=== PATIENT | female | born 1940 | race Caucasian/White ===

== ENCOUNTER 2018-05-08 17:22 | Inpatient (IN) | payer MEDICARE ==
[~2018-05-08] VITALS: Ht 162.6 cm; Wt 110.6 kg
[~2018-05-08 17:22] MED LIST: FURO-149 PO; LEVO100T9 PO; PARO10TA23 PO; POTA10TA19 PO; PRAM0.5T12 PO
[2018-05-08 18:10] LABS: BASOPHILS # (AUTO) 0.1 X10'3 (0-0.2); BASOPHILS % (AUTO) 1.1 % (0-1); EOSINOPHILS # (AUTO) 0.4 X10'3 (0-0.9); EOSINOPHILS % (AUTO) 3.5 % (0-6); HEMATOCRIT 34.1 % (35.0-45.0); HEMOGLOBIN 11.5 g/dl (12.0-16.0); LYMPHOCYTES % (AUTO) 17.9 % (21-51); MEAN CORPUSCULAR HEMOGLOBIN 29.8 PG (27.0-31.0); MEAN CORPUSCULAR HGB CONC 33.6 % (33.0-36.5); MEAN CORPUSCULAR VOLUME 88.5 FL (78-98); MEAN PLATELET VOLUME 7.1 FL (7.4-10.4); MONOCYTES # (AUTO) 0.7 X10'3 (0-0.9); MONOCYTES % (AUTO) 6.1 % (2-12); NEUTROPHILS # (AUTO) 7.8 X10'3 (1.8-7.7); NEUTROPHILS % (AUTO) 71.4 % (42-75); PLATELET COUNT 302 X10'3 (140-440); RED BLOOD COUNT 3.86 X10'6 (4.20-5.60); RED CELL DISTRIBUTION WIDTH 15.1 % (11.5-14.5); WHITE BLOOD COUNT 10.9 X10'3 (4.5-11.0)
[2018-05-08 18:24] LABS: ALBUMIN 2.9 G/DL (3.4-5.0); ALBUMIN/GLOBULIN RATIO 0.5 (1.1-1.5); ALKALINE PHOSPHATASE 91 IU/L (46-116); ANION GAP 9 (8-16); ASPARTATE AMINO TRANSFERASE 12 U/L (10-37); BILIRUBIN,TOTAL 0.7 MG/DL (0.1-1.0); BLOOD UREA NITROGEN 30 MG/DL (7-18); CALCIUM 9.4 MG/DL (8.5-10.1); CHLORIDE 100 MMOL/L (99-107); CREATININE 1.11 MG/DL (0.40-0.90); D-DIMER 2.07 MG/L FEU (0-0.50); GLUCOSE 97 MG/DL (70-104); PARTIAL THROMBOPLASTIN TIME 28 SECONDS (22-32); POTASSIUM 3.5 MMOL/L (3.5-5.1); PROTHROMBIN TIME 10.4 SECONDS (9.0-12.0); SODIUM 139 MMOL/L (135-145); TOTAL CARBON DIOXIDE 29.8 MMOL/L (24-32); TOTAL PROTEIN 8.3 G/DL (6.4-8.2); eGFR 48 ML/MIN
[2018-05-08 18:44] LABS: ALANINE AMINOTRANSFERASE < 6 U/L (12-78)
[2018-05-08] MEDS ORDERED: iohexol 350MG/ML 100ml bottle IV ONE (19:43)
[2018-05-08] MEDS ORDERED: piperacillin/tazo 3.375gm/50ml 50 ML IV ONE (21:30)
[2018-05-08] MEDS ORDERED: ZAR2.5T PO (23:47)
[2018-05-08] MEDS ORDERED: FLUO20CA39 PO (23:47)
[2018-05-09] MEDS ORDERED: normal saline 1000ml 1,000 ML IV ONE (00:05)
[2018-05-09] MEDS ORDERED: magnesium hydroxide 30ml (MOM) UD suspension PO PRN (00:05)
[2018-05-09] MEDS ORDERED: acetaminophen 325mg tablet PO PRN (00:05)
[2018-05-09] MEDS ORDERED: mag hydrox/Alum hydrox/simeth 30ml oral suspension PO PRN (00:05)
[2018-05-09] MEDS ORDERED: ondansetron/PF 4mg/2ml inj IV PRN (00:05)
[2018-05-09] MEDS ORDERED: vancomycin/NS 1 GM ADD-VANTAGE 250 ML X 1 DOSE IV ONE (00:15)
[2018-05-09 01:10] VITALS: BP 126/62
[2018-05-09 08:00] VITALS: BP 109/62
[2018-05-09] MEDS: levoTHYROXINE 125mcg tablet PO SCH (08:19)
[2018-05-09] MEDS: FLUoxetine 20mg capsule PO SCH (08:19)
[2018-05-09] MEDS: pramipexole 0.25mg tablet PO PRN ×2 (08:19→17:09)
[2018-05-09] MEDS: enoxaparin 40mg/0.4ml syringe SUBCUT SCH (08:20)
[2018-05-09 09:48] LABS: BASOPHILS % (AUTO) 0.5 % (0-1); EOSINOPHILS # (AUTO) 0.4 X10'3 (0-0.9); EOSINOPHILS % (AUTO) 4.4 % (0-6); HEMATOCRIT 32.5 % (35.0-45.0); LYMPHOCYTES # (AUTO) 1.4 X10'3 (1.1-4.8); LYMPHOCYTES % (AUTO) 15.1 % (21-51); MEAN CORPUSCULAR HEMOGLOBIN 30.1 PG (27.0-31.0); MEAN CORPUSCULAR HGB CONC 33.9 % (33.0-36.5); MEAN CORPUSCULAR VOLUME 88.8 FL (78-98); MEAN PLATELET VOLUME 6.8 FL (7.4-10.4); MONOCYTES # (AUTO) 0.7 X10'3 (0-0.9); MONOCYTES % (AUTO) 7.6 % (2-12); NEUTROPHILS # (AUTO) 6.5 X10'3 (1.8-7.7); NEUTROPHILS % (AUTO) 72.4 % (42-75); PLATELET COUNT 300 X10'3 (140-440); RED BLOOD COUNT 3.66 X10'6 (4.20-5.60); RED CELL DISTRIBUTION WIDTH 15.4 % (11.5-14.5)
[2018-05-09 09:53] LABS: ALBUMIN 2.6 G/DL (3.4-5.0); ANION GAP 7 (8-16); BLOOD UREA NITROGEN 27 MG/DL (7-18); BUN/CREATININE RATIO 25.5 (6.6-38.0); CALCIUM 9.2 MG/DL (8.5-10.1); CHLORIDE 100 MMOL/L (99-107); CREATININE 1.06 MG/DL (0.40-0.90); GLUCOSE 125 MG/DL (70-104); POTASSIUM 3.4 MMOL/L (3.5-5.1); SODIUM 140 MMOL/L (135-145); TOTAL CARBON DIOXIDE 32.6 MMOL/L (24-32); eGFR 50 ML/MIN
[2018-05-09 11:58] VITALS: BP 125/69
[2018-05-09] MEDS ORDERED: magnesium Cl slow-release 64mg tablet PO PRN (16:10)
[2018-05-09] MEDS ORDERED: potassium Cl 40MEQ/NS 500ml 500 ML IV PRN ×2 (16:10)
[2018-05-09] MEDS ORDERED: magnesium 4gm in 100ml NS 100 ML IV PRN (16:10)
[2018-05-09] MEDS ORDERED: potassium Cl 20 mEq SR tablet PO PRN (16:10)
[2018-05-09] MEDS: CefTRIAXone/D5W-Rocephin 1gm 50 ML IV SCH (16:54)
[2018-05-09] MEDS: potassium Cl 20 mEq SR tablet PO PRN ×2 (17:01→21:16)
[2018-05-09 19:00] VITALS: BP 108/84
[2018-05-09] MEDS: lactobacillus rhamnosus 10,000 MMU CELLS/CAPSULE PO SCH (19:43)
[2018-05-09] MEDS: acetaminophen 325mg tablet PO PRN (19:45)
[2018-05-09] MEDS: pramipexole 0.25mg tablet PO SCH (23:36)
[2018-05-10] VITALS (7 sets, daily range): BP systolic 99–133; BP diastolic 51–66
[2018-05-10] MEDS: acetaminophen 325mg tablet PO PRN ×2 (05:16→16:41)
[2018-05-10 05:38] LABS: BASOPHILS # (AUTO) 0.1 X10'3 (0-0.2); BASOPHILS % (AUTO) 0.9 % (0-1); EOSINOPHILS # (AUTO) 0.4 X10'3 (0-0.9); EOSINOPHILS % (AUTO) 5.5 % (0-6); HEMATOCRIT 34.6 % (35.0-45.0); HEMOGLOBIN 11.6 g/dl (12.0-16.0); LYMPHOCYTES # (AUTO) 2.1 X10'3 (1.1-4.8); LYMPHOCYTES % (AUTO) 28.7 % (21-51); MEAN CORPUSCULAR HEMOGLOBIN 29.5 PG (27.0-31.0); MEAN CORPUSCULAR HGB CONC 33.6 % (33.0-36.5); MEAN CORPUSCULAR VOLUME 87.8 FL (78-98); MONOCYTES # (AUTO) 0.5 X10'3 (0-0.9); MONOCYTES % (AUTO) 6.3 % (2-12); NEUTROPHILS # (AUTO) 4.3 X10'3 (1.8-7.7); NEUTROPHILS % (AUTO) 58.6 % (42-75); PLATELET COUNT 314 X10'3 (140-440); RED BLOOD COUNT 3.95 X10'6 (4.20-5.60); RED CELL DISTRIBUTION WIDTH 15.4 % (11.5-14.5); WHITE BLOOD COUNT 7.3 X10'3 (4.5-11.0)
[2018-05-10 05:50] LABS: ALBUMIN 2.7 G/DL (3.4-5.0); ANION GAP 11 (8-16); BLOOD UREA NITROGEN 18 MG/DL (7-18); BUN/CREATININE RATIO 19.1 (6.6-38.0); CALCIUM 9.9 MG/DL (8.5-10.1); CHLORIDE 100 MMOL/L (99-107); CREATININE 0.94 MG/DL (0.40-0.90); GLUCOSE 110 MG/DL (70-104); POTASSIUM 3.8 MMOL/L (3.5-5.1); SODIUM 138 MMOL/L (135-145); TOTAL CARBON DIOXIDE 27.3 MMOL/L (24-32); eGFR 58 ML/MIN
[2018-05-10] MEDS: lactobacillus rhamnosus 10,000 MMU CELLS/CAPSULE PO SCH ×2 (07:26→20:12)
[2018-05-10] MEDS: pramipexole 0.25mg tablet PO SCH ×2 (07:26→20:12)
[2018-05-10] MEDS: FLUoxetine 20mg capsule PO SCH (07:27)
[2018-05-10] MEDS: levoTHYROXINE 125mcg tablet PO SCH (07:27)
[2018-05-10] MEDS: CefTRIAXone/D5W-Rocephin 1gm 50 ML IV SCH (07:28)
[2018-05-10] MEDS: enoxaparin 40mg/0.4ml syringe SUBCUT SCH (07:28)
[2018-05-10] MEDS ORDERED: VANCOMYCIN LEVEL IV ONE (23:30)
[2018-05-11] VITALS: BP 127/68
[2018-05-11 06:48] LABS: ALBUMIN 2.5 G/DL (3.4-5.0); ANION GAP 10 (8-16); BLOOD UREA NITROGEN 20 MG/DL (7-18); BUN/CREATININE RATIO 23.5 (6.6-38.0); CALCIUM 9.6 MG/DL (8.5-10.1); CHLORIDE 101 MMOL/L (99-107); CREATININE 0.85 MG/DL (0.40-0.90); GLUCOSE 100 MG/DL (70-104); SODIUM 138 MMOL/L (135-145); TOTAL CARBON DIOXIDE 26.7 MMOL/L (24-32); eGFR 65 ML/MIN
[2018-05-11 07:00] VITALS: BP 114/65
[2018-05-11 07:58] LABS: BASOPHILS # (AUTO) 0.1 X10'3 (0-0.2); BASOPHILS % (AUTO) 0.9 % (0-1); EOSINOPHILS # (AUTO) 0.4 X10'3 (0-0.9); HEMOGLOBIN 11.7 g/dl (12.0-16.0); LYMPHOCYTES % (AUTO) 26.1 % (21-51); MEAN CORPUSCULAR HEMOGLOBIN 29.8 PG (27.0-31.0); MEAN CORPUSCULAR HGB CONC 33.5 % (33.0-36.5); MEAN CORPUSCULAR VOLUME 88.9 FL (78-98); MONOCYTES # (AUTO) 0.6 X10'3 (0-0.9); MONOCYTES % (AUTO) 8.3 % (2-12); NEUTROPHILS # (AUTO) 4.4 X10'3 (1.8-7.7); NEUTROPHILS % (AUTO) 58.7 % (42-75); PLATELET COUNT 316 X10'3 (140-440); RED BLOOD COUNT 3.94 X10'6 (4.20-5.60); RED CELL DISTRIBUTION WIDTH 15.5 % (11.5-14.5); WHITE BLOOD COUNT 7.5 X10'3 (4.5-11.0)
[2018-05-11] MEDS: CefTRIAXone/D5W-Rocephin 1gm 50 ML IV SCH (08:48)
[2018-05-11] MEDS: levoTHYROXINE 100mcg tablet PO SCH (08:59)
[2018-05-11] MEDS: lactobacillus rhamnosus 10,000 MMU CELLS/CAPSULE PO SCH ×2 (09:00→19:19)
[2018-05-11] MEDS: pramipexole 0.25mg tablet PO SCH ×2 (09:01→19:19)
[2018-05-11] MEDS: FLUoxetine 20mg capsule PO SCH (09:01)
[2018-05-11] MEDS: enoxaparin 40mg/0.4ml syringe SUBCUT SCH (09:02)
[2018-05-11 10:50] VITALS: BP 126/75
[2018-05-11 11:00] VITALS: BP 126/75
[2018-05-11] MEDS ORDERED: vancomycin inj 1,250 MG in normal saline 250ml IV soln 250 ML IV SCH (12:00)
[2018-05-11] MEDS: clindamycin 600mg/D5W 50ml 50 ML IV SCH ×2 (15:41→19:19)
[2018-05-11] MEDS: levoFLOXACIN-Levaquin 500mg/D5 100 ML IV SCH (16:44)
[2018-05-11 18:00] VITALS: BP 114/63
[2018-05-12] VITALS: BP 106/55
[2018-05-12] MEDS: clindamycin 600mg/D5W 50ml 50 ML IV SCH ×3 (01:58→14:09)
[2018-05-12 06:44] LABS: BASOPHILS # (AUTO) 0.1 X10'3 (0-0.2); BASOPHILS % (AUTO) 0.7 % (0-1); EOSINOPHILS # (AUTO) 0.5 X10'3 (0-0.9); EOSINOPHILS % (AUTO) 5.6 % (0-6); HEMATOCRIT 34.8 % (35.0-45.0); HEMOGLOBIN 11.6 g/dl (12.0-16.0); LYMPHOCYTES # (AUTO) 1.9 X10'3 (1.1-4.8); LYMPHOCYTES % (AUTO) 22.8 % (21-51); MEAN CORPUSCULAR HEMOGLOBIN 29.6 PG (27.0-31.0); MEAN CORPUSCULAR HGB CONC 33.3 % (33.0-36.5); MEAN CORPUSCULAR VOLUME 88.8 FL (78-98); MEAN PLATELET VOLUME 7.1 FL (7.4-10.4); MONOCYTES # (AUTO) 0.6 X10'3 (0-0.9); MONOCYTES % (AUTO) 7.5 % (2-12); NEUTROPHILS # (AUTO) 5.2 X10'3 (1.8-7.7); NEUTROPHILS % (AUTO) 63.4 % (42-75); PLATELET COUNT 309 X10'3 (140-440); RED BLOOD COUNT 3.92 X10'6 (4.20-5.60); RED CELL DISTRIBUTION WIDTH 15.8 % (11.5-14.5); WHITE BLOOD COUNT 8.2 X10'3 (4.5-11.0)
[2018-05-12 06:52] LABS: ALBUMIN 2.7 G/DL (3.4-5.0); ANION GAP 12 (8-16); BLOOD UREA NITROGEN 19 MG/DL (7-18); BUN/CREATININE RATIO 20.4 (6.6-38.0); CALCIUM 9.9 MG/DL (8.5-10.1); CHLORIDE 99 MMOL/L (99-107); CREATININE 0.93 MG/DL (0.40-0.90); GLUCOSE 105 MG/DL (70-104); POTASSIUM 4.1 MMOL/L (3.5-5.1); SODIUM 139 MMOL/L (135-145); TOTAL CARBON DIOXIDE 28.4 MMOL/L (24-32); eGFR 59 ML/MIN
[2018-05-12 07:00] VITALS: BP 129/60
[2018-05-12] MEDS: levoTHYROXINE 100mcg tablet PO SCH (07:27)
[2018-05-12] MEDS: lactobacillus rhamnosus 10,000 MMU CELLS/CAPSULE PO SCH (07:27)
[2018-05-12] MEDS: pramipexole 0.25mg tablet PO SCH ×2 (07:27→18:52)
[2018-05-12] MEDS: FLUoxetine 20mg capsule PO SCH (07:27)
[2018-05-12] MEDS: enoxaparin 40mg/0.4ml syringe SUBCUT SCH (07:28)
[2018-05-12] MEDS: levoFLOXACIN-Levaquin 500mg/D5 100 ML IV SCH (09:11)
[2018-05-12] MEDS ORDERED: CLIN-5 PO (11:15)
[2018-05-12] MEDS ORDERED: LEVO100T9 PO (11:15)
[2018-05-12] MEDS ORDERED: LEVO500T2 PO (11:15)
[2018-05-12 11:57] VITALS: BP 115/58
[2018-05-12] MEDS ORDERED: VANCOMYCIN LEVEL IV NR (23:30)
[2018-05-13] MEDS ORDERED: levoFLOXACIN 500mg tablet PO SCH (11:00)
== END 2018-05-12 19:21 | disposition home or self-care (01) | DRG 683 ==
LOC: ER 17:23 → ED HOLD 05-09 00:01 → EDBEDREQ 05-09 00:17 → SUR 3N 05-09 00:50
PROVIDERS: ADMIT Internal Medicine; ATTEND Internal Medicine
PROC: B32T1ZZ Computerized Tomography (CT Scan) of Left Pulmonary Artery using Low Osmolar Contrast (ICD-10-PCS; principal; 2018-05-08)
PROC: B3201ZZ Computerized Tomography (CT Scan) of Thoracic Aorta using Low Osmolar Contrast (ICD-10-PCS; 2018-05-08)
PROC: B32S1ZZ Computerized Tomography (CT Scan) of Right Pulmonary Artery using Low Osmolar Contrast (ICD-10-PCS; 2018-05-08)
DX: N17.9 Acute kidney failure, unspecified (principal); L03.116 Cellulitis of left lower limb; Z68.41 Body mass index [BMI] 40.0-44.9, adult; L97.129 Non-pressure chronic ulcer of left thigh with unspecified severity; E86.0 Dehydration; E03.9 Hypothyroidism, unspecified; E87.6 Hypokalemia; I27.20 Pulmonary hypertension, unspecified; I11.0 Hypertensive heart disease with heart failure; I95.9 Hypotension, unspecified; D64.9 Anemia, unspecified; I50.9 Heart failure, unspecified; E66.01 Morbid (severe) obesity due to excess calories; K21.9 Gastro-esophageal reflux disease without esophagitis; F32.9 Major depressive disorder, single episode, unspecified; G89.29 Other chronic pain; R09.02 Hypoxemia; R59.0 Localized enlarged lymph nodes; Z90.49 Acquired absence of other specified parts of digestive tract; Z87.440 Personal history of urinary (tract) infections; Z82.49 Family history of ischemic heart disease and other diseases of the circulatory system
CPT/HCPCS: 36415; 71045; 71275; 73552; 76881; 80048; 80053; 80202; 83880; 84443; 84484; 85025; 85379; 85610; 85730; 87040; 87070; 93005; 93306; 97116; 97161; 97530; 99285; A4649; A6196; A6212; A6213; A6449; J0696; J1650; J1956; J2543; J3370; J3490; J7030; Q9967

== ENCOUNTER 2018-05-30 07:46 | Day surgery (SDC) | payer MEDICARE ==
[2018-05-30] VITALS (11 sets, daily range): BP systolic 111–165; BP diastolic 52–89
[~2018-05-30] VITALS: Ht 162.6 cm; Wt 113.0 kg
[~2018-05-30 07:46] MED LIST changes: +CLIN-5 PO; +FLUO20CA39 PO; -FURO-149 PO; -PARO10TA23 PO; -POTA10TA19 PO
[2018-05-30] MEDS ORDERED: HYDR-4384 PO (08:37)
[2018-05-30] MEDS ORDERED: LEVO100T PO (08:37)
[2018-05-30] MEDS ORDERED: LACT1CAP65 PO (08:37)
[2018-05-30] MEDS ORDERED: ASPI81TA52 PO (08:37)
[2018-05-30] MEDS ORDERED: LORazepam 1 MG tablet PO STA (08:56)
== END 2018-05-30 12:15 | disposition home or self-care (01) ==
LOC: SSTAY O 07:46
PROVIDERS: ATTEND Radiology Diagnostic Radiology
DX: D48.5 Neoplasm of uncertain behavior of skin (principal); I27.20 Pulmonary hypertension, unspecified; K21.9 Gastro-esophageal reflux disease without esophagitis; M17.0 Bilateral primary osteoarthritis of knee; F32.9 Major depressive disorder, single episode, unspecified; I50.9 Heart failure, unspecified; F41.8 Other specified anxiety disorders; Z90.49 Acquired absence of other specified parts of digestive tract; Z90.89 Acquired absence of other organs; Z79.82 Long term (current) use of aspirin; Z79.891 Long term (current) use of opiate analgesic; Z79.899 Other long term (current) drug therapy; Z98.890 Other specified postprocedural states; Z82.49 Family history of ischemic heart disease and other diseases of the circulatory system
CPT/HCPCS: 36415; 38505; 76942; 88184; 88185; 88305

== ENCOUNTER 2018-06-13 06:41 | Day surgery (SDC) | payer MEDICARE ==
[2018-06-12 12:21] LABS: BASOPHILS % (AUTO) 0.3 % (0-1); EOSINOPHILS # (AUTO) 0.3 X10'3 (0-0.9); EOSINOPHILS % (AUTO) 3.4 % (0-6); LYMPHOCYTES # (AUTO) 1.7 X10'3 (1.1-4.8); LYMPHOCYTES % (AUTO) 21.1 % (21-51); MEAN CORPUSCULAR HEMOGLOBIN 28.5 PG (27.0-31.0); MEAN CORPUSCULAR HGB CONC 32.6 % (33.0-36.5); MEAN CORPUSCULAR VOLUME 87.7 FL (78-98); MEAN PLATELET VOLUME 6.7 FL (7.4-10.4); MONOCYTES # (AUTO) 0.4 X10'3 (0-0.9); MONOCYTES % (AUTO) 5.5 % (2-12); NEUTROPHILS # (AUTO) 5.6 X10'3 (1.8-7.7); NEUTROPHILS % (AUTO) 69.7 % (42-75); PRE OP HEMATOCRIT 32.2 % (35.0-45.0); PRE OP PLATELET COUNT 383 X10'3 (140-440); RED BLOOD COUNT 3.68 X10'6 (4.20-5.60); RED CELL DISTRIBUTION WIDTH 16.5 % (11.5-14.5)
[2018-06-12 12:25] LABS: PRE OP HEMOGLOBIN 10.5 g/dL (12.0-16.0)
[2018-06-12 12:36] LABS: ALBUMIN 2.4 G/DL (3.4-5.0); ALBUMIN/GLOBULIN RATIO 0.4 (1.1-1.5); ALKALINE PHOSPHATASE 76 IU/L (46-116); BLOOD UREA NITROGEN 18 MG/DL (7-18); BUN/CREATININE RATIO 18.9 (6.6-38.0); CALCIUM 9.5 MG/DL (8.5-10.1); CHLORIDE 100 MMOL/L (99-107); CREATININE 0.95 MG/DL (0.40-0.90); PRE OP ALT 13 U/L (30-65); PRE OP ANION GAP 9 (8-16); PRE OP AST 12 U/L (10-37); PRE OP BILIRUB, TOTAL 0.3 MG/DL (0.0-1.0); PRE OP GLUCOSE 160 MG/DL (70-104); PRE OP POTASSIUM 4.1 MMOL/L (3.4-5.1); PRE OP SODIUM 136 MMOL/L (135-145); TOTAL CARBON DIOXIDE 26.9 MMOL/L (24-32); TOTAL PROTEIN 8.7 G/DL (6.4-8.2); eGFR 57 ML/MIN
[2018-06-13] VITALS (20 sets, daily range): BP systolic 108–140; BP diastolic 49–88
[~2018-06-13] VITALS: Ht 162.6 cm; Wt 115.0 kg
[~2018-06-13 06:41] MED LIST changes: +ASPI81TA52 PO; -CLIN-5 PO; +HYDR-4384 PO; +LEVO100T PO; -LEVO100T9 PO; +LORA0.5T PO; +LYR25C PO; +famotidine 20mg tablet PO ONE; +ringers solution, lacted 1,000 ML IV SCH
[2018-06-13] MEDS ORDERED: LIDOcaine 1% (10mg/ml) 2ml vial ONE (07:01)
[2018-06-13] MEDS ORDERED: epiNEPHrine 1 mg/ml inj ONE (08:40)
[2018-06-13] MEDS ORDERED: BUPIVAcaine/PF 2.5mg/ml (0.25%) 10ml vial ONE (08:41)
[2018-06-13] MEDS ORDERED: LIDOcaine 1% 30ml preserv. free vial ONE (09:01)
[2018-06-13] MEDS ORDERED: cefazolin/dext.iso 2gm/100 ML IV ONE (10:51)
[2018-06-13] MEDS ORDERED: sevoflurane 250ml liquid IH ONE (10:52)
[2018-06-13] MEDS ORDERED: fentaNYL/PF 50MCG/1 ML 2ML syringe ONE (10:54)
[2018-06-13] MEDS ORDERED: propofol inj 20 ML IV ONE (11:02)
[2018-06-13] MEDS ORDERED: LIDOcaine 2% (20mg/ml) 5ml vial ONE (11:03)
[2018-06-13] MEDS ORDERED: ceFAZolin 1000mg inj ONE ×2 (11:06)
[2018-06-13] MEDS ORDERED: ondansetron/PF 4mg/2ml inj ONE (11:24)
[2018-06-13] MEDS ORDERED: dexamethasone sod phosphate 4mg/ml inj. ONE (11:24)
[2018-06-13] MEDS ORDERED: morphine 4 MG/ML inj SYRINge ONE (11:49)
[2018-06-13] MEDS ORDERED: ringers solution, lacted 1,000 ML IV SCH (11:50)
[2018-06-13] MEDS ORDERED: ondansetron/PF 4mg/2ml inj IV PRN (11:50)
[2018-06-13] MEDS: morphine 4 MG/ML inj SYRINge IV PRN ×2 (12:00→12:07)
[2018-06-13] MEDS: HYDROmorphone inj. 0.5 MG/0.5 ML DISP.SYRIN IV PRN ×2 (12:09→12:26)
[2018-06-13] MEDS ORDERED: HYDROcodone/acetaminophen 10/325mg tab PO ONE (12:50)
== END 2018-06-13 14:45 | disposition home or self-care (01) ==
LOC: PAS 06:41
PROVIDERS: ATTEND Surgery
DX: C81.04 Nodular lymphocyte predominant Hodgkin lymphoma, lymph nodes of axilla and upper limb (principal); E03.9 Hypothyroidism, unspecified; G47.33 Obstructive sleep apnea (adult) (pediatric); I27.20 Pulmonary hypertension, unspecified; I50.9 Heart failure, unspecified; E66.9 Obesity, unspecified; K21.9 Gastro-esophageal reflux disease without esophagitis; D64.9 Anemia, unspecified; M17.0 Bilateral primary osteoarthritis of knee; G25.81 Restless legs syndrome; F32.9 Major depressive disorder, single episode, unspecified; F41.8 Other specified anxiety disorders; Z79.82 Long term (current) use of aspirin; Z68.41 Body mass index [BMI] 40.0-44.9, adult; Z90.89 Acquired absence of other organs; Z87.01 Personal history of pneumonia (recurrent); Z90.49 Acquired absence of other specified parts of digestive tract; Z79.891 Long term (current) use of opiate analgesic; Z98.890 Other specified postprocedural states; Z79.899 Other long term (current) drug therapy; Z82.49 Family history of ischemic heart disease and other diseases of the circulatory system
CPT/HCPCS: 36415; 38525; 80053; 82948; 85025; 88184; 88185; 88341; 88342; A6449; J0171; J0690; J1100; J1170; J2001; J2270; J2405; J2704; J3010; J3490; 88305; A7000; J7120

== ENCOUNTER 2019-09-18 10:33 | Emergency (ER) | payer MEDICARE ==
[~2019-09-18] VITALS: Ht 165.1 cm; Wt 113.6 kg
[~2019-09-18 10:33] MED LIST changes: -famotidine 20mg tablet PO ONE; -ringers solution, lacted 1,000 ML IV SCH
[2019-09-18 11:25] LABS: BASOPHILS % (AUTO) 1.3 % (0-1); EOSINOPHILS # (AUTO) 0.1 X10'3 (0-0.9); EOSINOPHILS % (AUTO) 4.7 % (0-6); HEMATOCRIT 36.6 % (35.0-45.0); HEMOGLOBIN 12.2 g/dl (12.0-16.0); LYMPHOCYTES # (AUTO) 1.2 X10'3 (1.1-4.8); LYMPHOCYTES % (AUTO) 39.8 % (21-51); MEAN CORPUSCULAR HEMOGLOBIN 30.4 PG (27.0-31.0); MEAN CORPUSCULAR HGB CONC 33.5 g/dL (33.0-36.5); MEAN PLATELET VOLUME 6.7 FL (7.4-10.4); MONOCYTES # (AUTO) 0.5 X10'3 (0-0.9); MONOCYTES % (AUTO) 17.7 % (2-12); NEUTROPHILS # (AUTO) 1.1 X10'3 (1.8-7.7); NEUTROPHILS % (AUTO) 36.5 % (42-75); PLATELET COUNT 214 X10'3 (140-440); RED BLOOD COUNT 4.02 X10'6 (4.20-5.60); RED CELL DISTRIBUTION WIDTH 15.1 % (11.5-14.5); WHITE BLOOD COUNT 2.9 X10'3 (4.5-11.0)
[2019-09-18 11:49] LABS: PLATELET ESTIMATE NORMAL; TOTAL CELLS COUNTED 100
[2019-09-18 11:56] LABS: ALANINE AMINOTRANSFERASE 27 U/L (12-78); ALBUMIN 3.1 G/DL (3.4-5.0); ALBUMIN/GLOBULIN RATIO 0.6 (1.1-1.5); ALKALINE PHOSPHATASE 82 IU/L (46-116); ANION GAP 5 (8-16); ASPARTATE AMINO TRANSFERASE 22 U/L (10-37); BILIRUBIN,TOTAL 0.5 MG/DL (0.1-1.0); BLOOD UREA NITROGEN 18 MG/DL (7-18); BUN/CREATININE RATIO 21.4 (6.6-38.0); CHLORIDE 104 MMOL/L (99-107); CREATININE 0.84 MG/DL (0.40-0.90); GLUCOSE 100 MG/DL (70-104); POTASSIUM 3.8 MMOL/L (3.5-5.1); SODIUM 139 MMOL/L (135-145); TOTAL CARBON DIOXIDE 30.1 MMOL/L (24-32); TOTAL PROTEIN 7.9 G/DL (6.4-8.2); eGFR 66 ML/MIN
[2019-09-18 12:00] LABS: LIPASE < 50 U/L (73-393); TROPONIN I < 0.04 NG/ML (0.0-0.05)
[2019-09-18] MEDS ORDERED: normal saline 1000ML IV soln IVB ONE ×2 (12:10)
[2019-09-18] MEDS ORDERED: ondansetron/PF 4mg/2ml inj IV ONE (12:10)
[2019-09-18] MEDS ORDERED: pantoprazole 40 MG vial IV ONE (12:15)
[2019-09-18] MEDS ORDERED: famotidine/PF 10 mg/ml inj IV ONE (12:15)
--- NOTE | 2019-09-18 12:40 | NUR ---
PT HAD LYMPHOMA 08/23 SHE WENT THROUGH RADIATION AND IT IS REPORTED THAT SHE IS IN REMISION. PT DR IS DR SMALLWOOD.
--- NOTE | 2019-09-18 12:55 | NUR ---
VASCULAT AT BEDSIDE
[2019-09-18 14:54] LABS: CLARITY,URINE SLIGHTLY CLOUDY (Clear); COLOR,URINE YELLOW (Yellow); GLUCOSE, URINE NEGATIVE (Neg); KETONES,URINE NEGATIVE (Neg); LEUKOCYTE ESTERASE ,URINE NEGATIVE (Neg); NITRITES, URINE NEGATIVE (Neg); OCCULT BLOOD,URINE TRACE-INTACT (Neg); PROTEIN,URINE NEGATIVE (Neg)
[2019-09-18 14:55] LABS: UA COLLECTION TYPE CLN CATCH MIDSTREAM
[2019-09-18] MEDS ORDERED: ONDA8TAB6 PO (14:59)
[2019-09-18] MEDS ORDERED: PANT-47 PO (14:59)
[2019-09-18 15:02] LABS: SQUAMOUS EPITHELIAL CELL,UR MANY /LPF (FEW)
[2019-09-18 15:03] LABS: BACTERIA,URINE 1+ /HPF (Neg); HYALINE CASTS 0-3 /LPF (NEGATIVE); MUCUS STRANDS FEW /LPF (Neg); WBC,URINE 0-4 /HPF (0-4)
[2019-09-18 15:50] VITALS: BP 102/56
[2019-09-20] MEDS ORDERED: ONDA8TAB65 PO (11:40)
[2019-09-20] MEDS ORDERED: PANT40TA4 PO (11:40)
== END 2019-09-18 15:52 | disposition home or self-care (01) ==
LOC: ER 10:34
DX: K29.00 Acute gastritis without bleeding (principal); E86.0 Dehydration; I11.0 Hypertensive heart disease with heart failure; I50.9 Heart failure, unspecified; K21.9 Gastro-esophageal reflux disease without esophagitis; G89.29 Other chronic pain; F32.9 Major depressive disorder, single episode, unspecified; Z90.49 Acquired absence of other specified parts of digestive tract; Z98.890 Other specified postprocedural states; Z79.899 Other long term (current) drug therapy
CPT/HCPCS: 36415; 80053; 81001; 83690; 83880; 84484; 85025; 93005; 93971; 96374; 96375; 99284; C9113; J2405; J3490; J7030

== ENCOUNTER 2022-11-28 15:41 | Emergency (ER) | payer MEDICARE ==
[~2022-11-28] VITALS: Ht 165.1 cm; Wt 127.3 kg
[~2022-11-28 15:41] MED LIST changes: -ASPI81TA52 PO; -HYDR-4384 PO; +LACT10SO78 PO; -LORA0.5T PO; -LYR25C PO; +ONDA-104 PO; +PANT40TA54 PO
[2022-11-28 15:51] VITALS: BP 111/63
[2022-11-28 16:04] LABS: BASOPHILS % (AUTO) 0.2 % (0-1); EOSINOPHILS # (AUTO) 0.1 X10'3 (0-0.9); EOSINOPHILS % (AUTO) 0.8 % (0-6); HEMATOCRIT 34.3 % (35.0-45.0); HEMOGLOBIN 11.5 g/dl (12.0-16.0); LYMPHOCYTES # (AUTO) 1.3 X10'3 (1.1-4.8); LYMPHOCYTES % (AUTO) 11.5 % (21-51); MEAN CORPUSCULAR HEMOGLOBIN 31.1 PG (27.0-31.0); MEAN CORPUSCULAR HGB CONC 33.6 g/dL (33.0-36.5); MEAN CORPUSCULAR VOLUME 92.6 FL (78-98); MEAN PLATELET VOLUME 6.9 FL (7.4-10.4); MONOCYTES # (AUTO) 1.1 X10'3 (0-0.9); MONOCYTES % (AUTO) 10.3 % (2-12); NEUTROPHILS # (AUTO) 8.4 X10'3 (1.8-7.7); NEUTROPHILS % (AUTO) 77.2 % (42-75); PLATELET COUNT 195 X10'3 (140-440); RED BLOOD COUNT 3.71 X10'6 (4.20-5.60); WHITE BLOOD COUNT 10.9 X10'3 (4.5-11.0)
[2022-11-28 16:20] LABS: ALANINE AMINOTRANSFERASE 12 U/L (12-78); ALBUMIN 2.8 G/DL (3.4-5.0); ALBUMIN/GLOBULIN RATIO 0.5 (1.1-1.5); ALKALINE PHOSPHATASE 72 IU/L (46-116); ANION GAP 7 (8-16); ASPARTATE AMINO TRANSFERASE 14 U/L (10-37); BILIRUBIN,TOTAL 0.4 MG/DL (0.1-1.0); BLOOD UREA NITROGEN 12 MG/DL (7-18); BUN/CREATININE RATIO 12.8 (10.0-20.0); CALCIUM 9.6 MG/DL (8.5-10.1); CHLORIDE 97 MMOL/L (99-107); CREATININE 0.94 MG/DL (0.40-0.90); GLUCOSE 128 MG/DL (70-104); POTASSIUM 4.1 MMOL/L (3.5-5.1); SODIUM 134 MMOL/L (135-145); TOTAL CARBON DIOXIDE 30.3 MMOL/L (24-32); eGFR 57 ML/MIN
[2022-11-28 16:21] LABS: MAGNESIUM 1.5 MG/DL (1.5-2.4)
== END 2022-11-28 17:36 | disposition left against medical advice (07) ==
LOC: ER 15:42
DX: R06.02 Shortness of breath (principal); Z53.21 Procedure and treatment not carried out due to patient leaving prior to being seen by health care provider; Z79.899 Other long term (current) drug therapy
CPT/HCPCS: 36415; 71046; 80053; 83735; 83880; 84484; 85025; 93005; 99281

== ENCOUNTER 2024-01-20 23:02 | Inpatient (IN) | payer MEDICARE ==
[~2024-01-20] VITALS: Ht 162.6 cm; Wt 104.1 kg
[~2024-01-20 23:02] MED LIST changes: +ALBU8HFA PO; +BUDE10.2 INH; +CHOL100025 PO; +DONE-46 PO; -FLUO20CA39 PO; -LACT10SO78 PO; +LACT1CAP74 PO; -ONDA-104 PO; -PANT40TA54 PO; +PRAM0.253 PO; -PRAM0.5T12 PO; +PROZ10C PO
[2024-01-21] VITALS (20 sets, daily range): BP systolic 106–160; BP diastolic 54–85; PULSE 56–106; RESP 12–36; O2SAT 93–98
[2024-01-21 00:03] LABS: BASOPHILS # (AUTO) 0.1 X10'3 (0-0.2); BASOPHILS % (AUTO) 0.5 % (0-1); EOSINOPHILS % (AUTO) 0 % (0-6); HEMATOCRIT 41.2 % (35.0-45.0); HEMOGLOBIN 13.9 g/dl (12.0-16.0); LYMPHOCYTES # (AUTO) 1.2 X10'3 (1.1-4.8); LYMPHOCYTES % (AUTO) 12.2 % (21-51); MEAN CORPUSCULAR HEMOGLOBIN 30.7 PG (27.0-31.0); MEAN CORPUSCULAR HGB CONC 33.6 g/dL (33.0-36.5); MEAN CORPUSCULAR VOLUME 91.2 FL (78-98); MEAN PLATELET VOLUME 6.9 FL (7.4-10.4); MONOCYTES # (AUTO) 0.3 X10'3 (0-0.9); MONOCYTES % (AUTO) 2.7 % (2-12); NEUTROPHILS # (AUTO) 8.5 X10'3 (1.8-7.7); NEUTROPHILS % (AUTO) 84.6 % (42-75); PLATELET COUNT 262 X10'3 (140-440); RED BLOOD COUNT 4.52 X10'6 (4.20-5.60); RED CELL DISTRIBUTION WIDTH 15.5 % (11.5-14.5); WHITE BLOOD COUNT 10.1 X10'3 (4.5-11.0)
[2024-01-21 00:11] LABS: ALANINE AMINOTRANSFERASE 22 U/L (12-78); ALBUMIN 3.8 G/DL (3.4-5.0); ALBUMIN/GLOBULIN RATIO 0.6 (1.1-1.5); ALKALINE PHOSPHATASE 100 IU/L (46-116); ANION GAP 10 (8-16); ASPARTATE AMINO TRANSFERASE 19 U/L (10-37); BILIRUBIN,TOTAL 0.8 MG/DL (0.1-1.0); BLOOD UREA NITROGEN 14 MG/DL (7-18); CALCIUM 10.9 MG/DL (8.5-10.1); CHLORIDE 98 MMOL/L (99-107); CREATININE 1.08 MG/DL (0.40-0.90); GLUCOSE 163 MG/DL (70-104); LIPASE 24 U/L (16-77); POTASSIUM 3.8 MMOL/L (3.5-5.1); SODIUM 138 MMOL/L (135-145); TOTAL CARBON DIOXIDE 29.6 MMOL/L (24-32); TOTAL PROTEIN 10.4 G/DL (6.4-8.2); eCRCL 35 ML/MIN; eGFR 49 ML/MIN
[2024-01-21] MEDS: morphine 4 MG/ML inj SYRINge IM ONE (01:09)
[2024-01-21] MEDS: normal saline 1000ML IV soln IVB ONE (01:10)
[2024-01-21] MEDS ORDERED: magnesium 4gm in 100ml NS 100 ML IV PRN (03:10)
[2024-01-21] MEDS ORDERED: ondansetron/PF 4mg/2ml inj IV PRN (03:10)
[2024-01-21] MEDS ORDERED: magnesium 2GM in 50ml NS 50 ML IV PRN (03:10)
[2024-01-21] MEDS ORDERED: potassium Cl 40MEQ/1/2NS 520ml 520 ML IV PRN (03:10)
[2024-01-21] MEDS ORDERED: morphine 2 MG/ML inj. syringe IV PRN ×2 (03:10→21:25)
[2024-01-21] MEDS ORDERED: magnesium Cl slow-release 64mg tablet PO PRN (03:10)
[2024-01-21] MEDS ORDERED: potassium Cl 20 mEq SR tablet PO PRN ×2 (03:10)
[2024-01-21] MEDS ORDERED: acetaminophen 325mg tablet PO PRN ×3 (03:10→21:25)
[2024-01-21] MEDS: normal saline 1000ml 1,000 ML IV SCH (04:22)
[2024-01-21] MEDS: K and/or MAG REPLACEMENT MC SCH (08:00)
[2024-01-21 09:25] LABS: POTASSIUM 3.7 MMOL/L (3.5-5.1)
[2024-01-21] MEDS: furosemide 20 MG/2 ML vial IV ONE (12:28)
[2024-01-21] MEDS ORDERED: midazolam 1 mg/ML 2ml injection ONE (14:05)
[2024-01-21] MEDS ORDERED: sevoflurane 250ml liquid IH ONE (14:12)
[2024-01-21] MEDS ORDERED: fentaNYL /PF 50mcg/ml 5ml ampule ONE (14:17)
[2024-01-21] MEDS ORDERED: propofol inj 20 ML IV ONE (15:21)
[2024-01-21] MEDS ORDERED: rocuronium 10mg/ml inj IV ONE (15:21)
[2024-01-21] MEDS ORDERED: LIDOcaine 1% (10mg/ml) 2ml vial ONE (15:21)
[2024-01-21] MEDS ORDERED: LIDOcaine 2% (20mg/ml) 5ml vial ONE (15:21)
[2024-01-21] MEDS ORDERED: ceFOXitin 1000 MG inj ONE ×2 (15:21)
[2024-01-21] MEDS ORDERED: dexamethasone sod phosphate 4mg/ml inj. ONE (15:33)
[2024-01-21] MEDS ORDERED: fentaNYL/PF 50MCG/1 ML 2ML syringe IV PRN (15:35)
[2024-01-21] MEDS ORDERED: midazolam 100mg in NS 100ml 100 ML IV SCH (15:35)
[2024-01-21] MEDS ORDERED: FENTANYL-0.9 % NACL/PF 100 ML IV SCH (15:35)
[2024-01-21] MEDS ORDERED: MIDAZOLAM IN NACL,ISO-OSMOT/PF 100 ML IV SCH ×2 (16:02→16:35)
[2024-01-21 16:46] LABS: ABG BASE EXCESS 1.4 mmol/L (-2.0-2.0); ABG HCO3 24.4 mmol/L (22.0-26.0); ABG OXYGEN SATURATION 95.4 % (94-97); ABG PCO2 (T) 33.1 mmHg (32.0-45.0); ABG PH (T) 7.486 (7.350-7.450); ABG PO2 (T) 76.9 mmHg (75.0-100.0); FCOHb 0.5 % (0.0-3.9); FHHb 4.6 % (0.0-5.0); FO2Hb 94.9 % (94-97); MODE SIMV VC; PATIENT TEMPERATURE 36.9; RESPIRATORY RATE 16 b/min; TIDAL VOLUME 400 mL; TOTAL HEMOGLOBIN 12.5 G/dl (12.0-16.0)
[2024-01-21] MEDS: MIDAZOLAM IN NACL,ISO-OSMOT/PF 100 ML IV SCH (16:48)
[2024-01-21] MEDS: FENTANYL-0.9 % NACL/PF 100 ML IV SCH (16:49)
[2024-01-21] MEDS: midazolam 1 mg/ML 2ml injection IV ONE (17:30)
[2024-01-21] MEDS ORDERED: albuterol 2.5 MG/3 ML nebule NEB PRN (21:25)
[2024-01-21] MEDS ORDERED: morphine 4 MG/ML inj SYRINge IV PRN (21:25)
[2024-01-21] MEDS ORDERED: magnesium hydroxide 30ml (MOM) UD suspension PO PRN (21:25)
[2024-01-21 22:40] LABS: OXYGEN SATURATION (MIXED VEN) 72.5 % (60-80); PO2 MIXED VENOUS (TEMP COR) 36.6 mmHg (35-46)
[2024-01-22] VITALS (32 sets, daily range): BP systolic 81–156; BP diastolic 45–72; PULSE 53–83; RESP 11–24; O2SAT 93–99
[2024-01-22 02:49] LABS: BASOPHILS % (AUTO) 0.1 % (0-1); EOSINOPHILS % (AUTO) 0 % (0-6); HEMATOCRIT 34.2 % (35.0-45.0); HEMOGLOBIN 11.3 g/dl (12.0-16.0); LYMPHOCYTES # (AUTO) 1.2 X10'3 (1.1-4.8); LYMPHOCYTES % (AUTO) 12.2 % (21-51); MEAN CORPUSCULAR HEMOGLOBIN 30.5 PG (27.0-31.0); MEAN CORPUSCULAR HGB CONC 33.1 g/dL (33.0-36.5); MEAN CORPUSCULAR VOLUME 92.2 FL (78-98); MEAN PLATELET VOLUME 7.3 FL (7.4-10.4); MONOCYTES # (AUTO) 0.4 X10'3 (0-0.9); MONOCYTES % (AUTO) 4.4 % (2-12); NEUTROPHILS # (AUTO) 8.4 X10'3 (1.8-7.7); NEUTROPHILS % (AUTO) 83.3 % (42-75); PLATELET COUNT 187 X10'3 (140-440); RED BLOOD COUNT 3.71 X10'6 (4.20-5.60); RED CELL DISTRIBUTION WIDTH 15.9 % (11.5-14.5); WHITE BLOOD COUNT 10.1 X10'3 (4.5-11.0)
[2024-01-22 03:03] LABS: ALBUMIN 2.5 G/DL (3.4-5.0); ANION GAP 6 (8-16); BLOOD UREA NITROGEN 21 MG/DL (7-18); BUN/CREATININE RATIO 20.4 (10.0-20.0); CALCIUM 8.5 MG/DL (8.5-10.1); CHLORIDE 105 MMOL/L (99-107); CREATININE 1.03 MG/DL (0.40-0.90); GLUCOSE 131 MG/DL (70-104); MAGNESIUM 2.1 MG/DL (1.5-2.4); PHOSPHORUS 2.2 MG/DL (2.3-4.5); POTASSIUM 3.6 MMOL/L (3.5-5.1); SODIUM 141 MMOL/L (135-145); TOTAL CARBON DIOXIDE 29.6 MMOL/L (24-32); eCRCL 36 ML/MIN; eGFR 51 ML/MIN
[2024-01-22 04:57] LABS: ABG BASE EXCESS 5.5 mmol/L (-2.0-2.0); ABG OXYGEN SATURATION 97.3 % (94-97); ABG PCO2 (T) 37.8 mmHg (32.0-45.0); ABG PH (T) 7.502 (7.350-7.450); FCOHb 0.2 % (0.0-3.9); FHHb 2.7 % (0.0-5.0); FMetHb 0.3 % (0.0-1.5); FO2Hb 96.8 % (94-97); MODE VENT-SIMV/VC; PATIENT TEMPERATURE 36.8; PEEP 5 cm H2O; RESPIRATORY RATE 16 b/min; TIDAL VOLUME 400 mL; TOTAL HEMOGLOBIN 12.2 G/dl (12.0-16.0)
[2024-01-22] MEDS: famotidine/PF 10 mg/ml inj IV SCH (08:05)
[2024-01-22] MEDS ORDERED: NYST15PO4 TOP (09:48)
[2024-01-22] MEDS ORDERED: PRAM0.5T12 PO (09:48)
[2024-01-22] MEDS ORDERED: ALPR0.255 PO (09:48)
[2024-01-22] MEDS: pramipexole 0.25mg tablet PO ONE (10:58)
[2024-01-22] MEDS ORDERED: HYDROmorphone inj. 0.5 MG/0.5 ML DISP.SYRIN IV PRN (11:35)
[2024-01-22] MEDS ORDERED: HYDROmorphone 1 mg/ml syringe IV PRN ×2 (11:35→11:40)
[2024-01-22] MEDS: pramipexole 0.25mg tablet PO SCH (15:04)
[2024-01-22] MEDS: ALPRAZolam 0.5mg tablet PO PRN (17:51)
[2024-01-22] MEDS: mineral oil/petrolatum ophthal oint EACHEYE SCH (20:00)
[2024-01-23] VITALS (24 sets, daily range): BP systolic 94–130; BP diastolic 46–66; PULSE 61–82; RESP 12–25; TEMP 96.1–99.2; O2SAT 79–98
[2024-01-23 03:10] LABS: BASOPHILS % (AUTO) 0.3 % (0-1); EOSINOPHILS # (AUTO) 0.1 X10'3 (0-0.9); EOSINOPHILS % (AUTO) 0.7 % (0-6); HEMATOCRIT 34.2 % (35.0-45.0); HEMOGLOBIN 11.1 g/dl (12.0-16.0); LYMPHOCYTES # (AUTO) 1.1 X10'3 (1.1-4.8); LYMPHOCYTES % (AUTO) 11.5 % (21-51); MEAN CORPUSCULAR HEMOGLOBIN 30.3 PG (27.0-31.0); MEAN CORPUSCULAR HGB CONC 32.6 g/dL (33.0-36.5); MEAN PLATELET VOLUME 7.7 FL (7.4-10.4); MONOCYTES # (AUTO) 0.4 X10'3 (0-0.9); MONOCYTES % (AUTO) 4.4 % (2-12); NEUTROPHILS % (AUTO) 83.1 % (42-75); PLATELET COUNT 188 X10'3 (140-440); RED BLOOD COUNT 3.67 X10'6 (4.20-5.60); RED CELL DISTRIBUTION WIDTH 16.1 % (11.5-14.5); WHITE BLOOD COUNT 9.6 X10'3 (4.5-11.0)
[2024-01-23 03:23] LABS: ALBUMIN 2.3 G/DL (3.4-5.0); ANION GAP 3 (8-16); BLOOD UREA NITROGEN 23 MG/DL (7-18); BUN/CREATININE RATIO 28.4 (10.0-20.0); CALCIUM 8.8 MG/DL (8.5-10.1); CHLORIDE 108 MMOL/L (99-107); CREATININE 0.81 MG/DL (0.40-0.90); GLUCOSE 109 MG/DL (70-104); MAGNESIUM 2.2 MG/DL (1.5-2.4); SODIUM 143 MMOL/L (135-145); TOTAL CARBON DIOXIDE 32.1 MMOL/L (24-32); eCRCL 46 ML/MIN; eGFR 68 ML/MIN
[2024-01-23 03:26] LABS: PHOSPHORUS 2.2 MG/DL (2.3-4.5); POTASSIUM 4.3 MMOL/L (3.5-5.1)
[2024-01-23] MEDS: famotidine/PF 10 mg/ml inj IV SCH (07:57)
[2024-01-23] MEDS: furosemide 20 MG/2 ML vial IV ONE (12:40)
[2024-01-23 13:05] LABS: FREE T4 (FREE THYROXINE) 1.07 NG/DL (0.73-1.40); THYROID STIMULATING HORMONE 0.34 ulU/ml (0.34-4.50)
[2024-01-23] MEDS ORDERED: ALPRAZolam 0.25mg tablet PO PRN (14:30)
[2024-01-23] MEDS: albuterol 2.5 MG/3 ML nebule NEB SCH (14:58)
[2024-01-23] MEDS: budesonide 0.5mg/2ml UD nebule IH SCH (19:19)
[2024-01-23] MEDS: nystatin 15 GM powder TP SCH (19:48)
[2024-01-23] MEDS ORDERED: non-formulary drug (Budesonide/Formoterol Fumarate (Symbicort 160-4.5 Mcg Inhaler) 2 PUFFS INH SCH (20:00)
[2024-01-23] MEDS: pramipexole 0.25mg tablet PO SCH (20:13)
[2024-01-23] MEDS: enoxaparin 40mg/0.4ml syringe SUBCUT SCH (20:14)
[2024-01-24] VITALS (18 sets, daily range): BP systolic 108–122; BP diastolic 40–52; PULSE 60–97; RESP 14–20; TEMP 97.9–98.7; O2SAT 84–97
[2024-01-24] MEDS: furosemide 20 MG/2 ML vial IV ONE (00:06)
[2024-01-24] MEDS: levoFLOXACIN-Levaquin 500mg/D5 100 ML IV SCH ×2 (00:06→23:50)
[2024-01-24] MEDS: HYDROmorphone inj. 0.5 MG/0.5 ML DISP.SYRIN IV PRN (04:34)
[2024-01-24 06:28] LABS: BASOPHILS % (AUTO) 0.5 % (0-1); EOSINOPHILS # (AUTO) 0.1 X10'3 (0-0.9); EOSINOPHILS % (AUTO) 2.1 % (0-6); HEMATOCRIT 31.1 % (35.0-45.0); HEMOGLOBIN 10.4 g/dl (12.0-16.0); LYMPHOCYTES % (AUTO) 14.9 % (21-51); MEAN CORPUSCULAR HEMOGLOBIN 30.7 PG (27.0-31.0); MEAN CORPUSCULAR HGB CONC 33.4 g/dL (33.0-36.5); MEAN CORPUSCULAR VOLUME 92.1 FL (78-98); MEAN PLATELET VOLUME 7.2 FL (7.4-10.4); MONOCYTES # (AUTO) 0.4 X10'3 (0-0.9); MONOCYTES % (AUTO) 6.5 % (2-12); PLATELET COUNT 173 X10'3 (140-440); RED BLOOD COUNT 3.38 X10'6 (4.20-5.60); WHITE BLOOD COUNT 6.6 X10'3 (4.5-11.0)
[2024-01-24 06:44] LABS: ALBUMIN 2.2 G/DL (3.4-5.0); ANION GAP 8 (8-16); BLOOD UREA NITROGEN 19 MG/DL (7-18); BUN/CREATININE RATIO 20.9 (10.0-20.0); CALCIUM 8.6 MG/DL (8.5-10.1); CHLORIDE 101 MMOL/L (99-107); CREATININE 0.91 MG/DL (0.40-0.90); GLUCOSE 103 MG/DL (70-104); MAGNESIUM 1.7 MG/DL (1.5-2.4); POTASSIUM 3.3 MMOL/L (3.5-5.1); SODIUM 138 MMOL/L (135-145); TOTAL CARBON DIOXIDE 28.8 MMOL/L (24-32); eCRCL 41 ML/MIN; eGFR 59 ML/MIN
[2024-01-24] MEDS ORDERED: magnesium 2GM in 50ml NS 50 ML IV PRN (08:55)
[2024-01-24] MEDS ORDERED: magnesium 4gm in 100ml NS 100 ML IV PRN (08:55)
[2024-01-24] MEDS ORDERED: potassium Cl 20 mEq SR tablet PO PRN (08:55)
[2024-01-24] MEDS ORDERED: potassium Cl 40MEQ/1/2NS 520ml 520 ML IV PRN (08:55)
[2024-01-24] MEDS ORDERED: magnesium Cl slow-release 64mg tablet PO PRN (08:55)
[2024-01-24] MEDS: cholecalciferol (vitamin D3) 1,000 unit (25mcg) tablet PO SCH (08:59)
[2024-01-24] MEDS: FLUoxetine 10mg capsule PO SCH (08:59)
[2024-01-24] MEDS: donepezil 5mg tablet PO SCH (08:59)
[2024-01-24] MEDS: pantoprazole 40 MG vial IV SCH (08:59)
[2024-01-24] MEDS: potassium Cl 20 mEq SR tablet PO PRN (09:17)
[2024-01-24] MEDS: methylPREDNISolone sod succ 125mg/2ml vial IV ONE (23:50)
[2024-01-25] VITALS (18 sets, daily range): BP systolic 118–139; BP diastolic 47–73; PULSE 50–87; RESP 12–20; TEMP 97.5–98.2; O2SAT 90–98
[2024-01-25 05:04] LABS: BASOPHILS % (AUTO) 0.3 % (0-1); EOSINOPHILS % (AUTO) 0.3 % (0-6); HEMOGLOBIN 10.8 g/dl (12.0-16.0); LYMPHOCYTES # (AUTO) 0.4 X10'3 (1.1-4.8); LYMPHOCYTES % (AUTO) 8.1 % (21-51); MEAN CORPUSCULAR HEMOGLOBIN 30.1 PG (27.0-31.0); MEAN CORPUSCULAR HGB CONC 32.6 g/dL (33.0-36.5); MEAN CORPUSCULAR VOLUME 92.3 FL (78-98); MEAN PLATELET VOLUME 7.1 FL (7.4-10.4); MONOCYTES # (AUTO) 0.1 X10'3 (0-0.9); MONOCYTES % (AUTO) 2.5 % (2-12); NEUTROPHILS # (AUTO) 4.9 X10'3 (1.8-7.7); NEUTROPHILS % (AUTO) 88.8 % (42-75); PLATELET COUNT 188 X10'3 (140-440); RED BLOOD COUNT 3.57 X10'6 (4.20-5.60); RED CELL DISTRIBUTION WIDTH 15.6 % (11.5-14.5); WHITE BLOOD COUNT 5.5 X10'3 (4.5-11.0)
[2024-01-25 05:22] LABS: ALBUMIN 2.3 G/DL (3.4-5.0); ANION GAP 7 (8-16); BLOOD UREA NITROGEN 15 MG/DL (7-18); BUN/CREATININE RATIO 19.5 (10.0-20.0); CALCIUM 9.4 MG/DL (8.5-10.1); CHLORIDE 100 MMOL/L (99-107); CREATININE 0.77 MG/DL (0.40-0.90); GLUCOSE 140 MG/DL (70-104); MAGNESIUM 1.9 MG/DL (1.5-2.4); PHOSPHORUS 3.6 MG/DL (2.3-4.5); POTASSIUM 4.7 MMOL/L (3.5-5.1); SODIUM 137 MMOL/L (135-145); TOTAL CARBON DIOXIDE 30.1 MMOL/L (24-32); eCRCL 49 ML/MIN; eGFR 72 ML/MIN
[2024-01-25] MEDS: ondansetron/PF 4mg/2ml inj IV PRN (14:10)
[2024-01-25] MEDS: furosemide 20 MG/2 ML vial IV ONE (14:56)
[2024-01-25 18:33] LABS: BILIRUBIN,URINE NEGATIVE (Neg); CLARITY,URINE CLOUDY (Clear); COLOR,URINE YELLOW (Yellow); GLUCOSE, URINE NEGATIVE (Neg); KETONES,URINE NEGATIVE (Neg); LEUKOCYTE ESTERASE ,URINE NEGATIVE (Neg); NITRITES, URINE NEGATIVE (Neg); OCCULT BLOOD,URINE LARGE (Neg); PH,URINE 5.5 (4.8-8.0); PROTEIN,URINE NEGATIVE (Neg); UROBILINOGEN,URINE 0.2 E.U/dL (0.2-1.0)
[2024-01-25 18:44] LABS: BACTERIA,URINE 1+ /HPF (Neg); RBC,URINE TNTC /HPF (0-2); RENAL CELLS, URINE FEW /HPF; SQUAMOUS EPITHELIAL CELL,UR FEW /LPF (FEW); TRANSITIONAL EPI CELLS,URINE FEW /HPF; UA COLLECTION TYPE FOLEY CATH; WBC,URINE 0-4 /HPF (0-4)
[2024-01-25] MEDS: furosemide 20 MG/2 ML vial IV SCH (19:31)
[2024-01-26] VITALS (15 sets, daily range): BP systolic 123–136; BP diastolic 55–66; PULSE 55–82; RESP 16–20; TEMP 97.6–98.2; O2SAT 92–98
[2024-01-26] MEDS: LIDOcaine 2% Viscous 15ml cup MM PRN (00:30)
[2024-01-26 09:36] LABS: BASOPHILS % (AUTO) 0.7 % (0-1); EOSINOPHILS # (AUTO) 0.1 X10'3 (0-0.9); EOSINOPHILS % (AUTO) 1.6 % (0-6); HEMATOCRIT 31.8 % (35.0-45.0); HEMOGLOBIN 10.6 g/dl (12.0-16.0); LYMPHOCYTES # (AUTO) 1.6 X10'3 (1.1-4.8); LYMPHOCYTES % (AUTO) 24.8 % (21-51); MEAN CORPUSCULAR HEMOGLOBIN 30.5 PG (27.0-31.0); MEAN CORPUSCULAR HGB CONC 33.4 g/dL (33.0-36.5); MEAN CORPUSCULAR VOLUME 91.2 FL (78-98); MEAN PLATELET VOLUME 7.7 FL (7.4-10.4); MONOCYTES # (AUTO) 0.6 X10'3 (0-0.9); MONOCYTES % (AUTO) 9.9 % (2-12); PLATELET COUNT 200 X10'3 (140-440); RED BLOOD COUNT 3.49 X10'6 (4.20-5.60); WHITE BLOOD COUNT 6.3 X10'3 (4.5-11.0)
[2024-01-26 11:34] LABS: ANISOCYTOSIS 1+; PLATELET ESTIMATE NORMAL; POLYCHROMASIA FEW; TOTAL CELLS COUNTED 100
[2024-01-26 12:38] LABS: ALANINE AMINOTRANSFERASE 17 U/L (12-78); ALBUMIN 2.5 G/DL (3.4-5.0); ALBUMIN/GLOBULIN RATIO 0.4 (1.1-1.5); ALKALINE PHOSPHATASE 61 IU/L (46-116); ANION GAP 6 (8-16); ASPARTATE AMINO TRANSFERASE 31 U/L (10-37); BILIRUBIN,TOTAL 0.7 MG/DL (0.1-1.0); BLOOD UREA NITROGEN 22 MG/DL (7-18); BUN/CREATININE RATIO 22.9 (10.0-20.0); CALCIUM 9.8 MG/DL (8.5-10.1); CHLORIDE 100 MMOL/L (99-107); CREATININE 0.96 MG/DL (0.40-0.90); GLUCOSE 105 MG/DL (70-104); POTASSIUM 3.6 MMOL/L (3.5-5.1); SODIUM 139 MMOL/L (135-145); TOTAL CARBON DIOXIDE 33.4 MMOL/L (24-32); TOTAL PROTEIN 8.1 G/DL (6.4-8.2); eCRCL 39 ML/MIN; eGFR 56 ML/MIN
[2024-01-26] MEDS: metroNIDAZOLE-Flagyl 500mg/NS 100 ML IV SCH (17:28)
[2024-01-26] MEDS: JUVEN Shake w/Arg/Glut/Ca2+Bmb (Juven 19.3gm) pkt 240ml PO SCH (18:24)
[2024-01-27] VITALS (14 sets, daily range): BP systolic 97–112; BP diastolic 54–65; PULSE 7–78; RESP 16–22; TEMP 97.2–97.5; O2SAT 94–97
[2024-01-27 09:47] LABS: BASOPHILS % (AUTO) 0.3 % (0-1); EOSINOPHILS # (AUTO) 0.2 X10'3 (0-0.9); EOSINOPHILS % (AUTO) 3.5 % (0-6); HEMATOCRIT 34.7 % (35.0-45.0); HEMOGLOBIN 11.6 g/dl (12.0-16.0); LYMPHOCYTES # (AUTO) 1.5 X10'3 (1.1-4.8); LYMPHOCYTES % (AUTO) 26.3 % (21-51); MEAN CORPUSCULAR HEMOGLOBIN 30.7 PG (27.0-31.0); MEAN CORPUSCULAR HGB CONC 33.5 g/dL (33.0-36.5); MEAN CORPUSCULAR VOLUME 91.8 FL (78-98); MEAN PLATELET VOLUME 7.4 FL (7.4-10.4); MONOCYTES # (AUTO) 0.6 X10'3 (0-0.9); MONOCYTES % (AUTO) 10.9 % (2-12); NEUTROPHILS # (AUTO) 3.3 X10'3 (1.8-7.7); PLATELET COUNT 240 X10'3 (140-440); RED BLOOD COUNT 3.78 X10'6 (4.20-5.60); RED CELL DISTRIBUTION WIDTH 15.9 % (11.5-14.5); WHITE BLOOD COUNT 5.6 X10'3 (4.5-11.0)
[2024-01-27 10:08] LABS: ALANINE AMINOTRANSFERASE 25 U/L (12-78); ALBUMIN 2.5 G/DL (3.4-5.0); ALBUMIN/GLOBULIN RATIO 0.4 (1.1-1.5); ALKALINE PHOSPHATASE 59 IU/L (46-116); ANION GAP 9 (8-16); ASPARTATE AMINO TRANSFERASE 24 U/L (10-37); BILIRUBIN,TOTAL 0.8 MG/DL (0.1-1.0); BLOOD UREA NITROGEN 27 MG/DL (7-18); BUN/CREATININE RATIO 23.5 (10.0-20.0); CALCIUM 9.8 MG/DL (8.5-10.1); CHLORIDE 97 MMOL/L (99-107); CREATININE 1.15 MG/DL (0.40-0.90); GLUCOSE 141 MG/DL (70-104); SODIUM 136 MMOL/L (135-145); TOTAL CARBON DIOXIDE 30.5 MMOL/L (24-32); TOTAL CELLS COUNTED 100; TOTAL PROTEIN 8.2 G/DL (6.4-8.2); eCRCL 33 ML/MIN; eGFR 45 ML/MIN
[2024-01-27 10:09] LABS: ANISOCYTOSIS 1+; PLATELET ESTIMATE NORMAL
[2024-01-27 10:10] LABS: POTASSIUM 3.6 MMOL/L (3.5-5.1)
[2024-01-27] MEDS ORDERED: magnesium 2GM in 50ml NS 50 ML IV PRN (13:40)
[2024-01-27] MEDS ORDERED: potassium Cl 20 mEq SR tablet PO PRN ×2 (13:40)
[2024-01-27] MEDS ORDERED: potassium Cl 40MEQ/1/2NS 520ml 520 ML IV PRN (13:40)
[2024-01-27] MEDS ORDERED: magnesium 4gm in 100ml NS 100 ML IV PRN (13:40)
[2024-01-27] MEDS ORDERED: magnesium Cl slow-release 64mg tablet PO PRN (13:40)
[2024-01-27] MEDS ORDERED: POTA-207 PO (14:24)
[2024-01-27] MEDS ORDERED: LEVO-65 PO (14:24)
[2024-01-27] MEDS ORDERED: ONDA4TAB12 PO (14:24)
[2024-01-27] MEDS ORDERED: HYDR-3965 PO (14:24)
[2024-01-27] MEDS ORDERED: FURO20TA4 PO (14:24)
[2024-01-27] MEDS ORDERED: ALBU2.5V7 NEB ×2 (15:04→16:43)
[2024-01-27] MEDS ORDERED: BUDE0.5A3 IH (15:04)
[2024-01-27] MEDS ORDERED: BUDE0.5A3 NEB (16:43)
[2024-01-27] MEDS ORDERED: K and/or MAG REPLACEMENT MC SCH (20:00)
[2024-01-28] MEDS ORDERED: pantoprazole 40mg Tablet.DR PO SCH (07:30)
[2024-01-28] MEDS ORDERED: levoFLOXACIN 500mg tablet PO SCH (11:00)
== END 2024-01-27 16:50 | disposition home health service (06) | DRG 353 ==
LOC: ER 23:03 → ED HOLD 01-21 03:09 → CICU 2S 01-21 16:10 → ORTHO 4S 01-23 16:25 → UNDODISIN 01-25 15:00
PROVIDERS: ADMIT Internal Medicine; ATTEND Internal Medicine
PROC: 0D9670Z Drainage of Stomach with Drainage Device, Via Natural or Artificial Opening (ICD-10-PCS; 2024-01-21)
PROC: 0WQF0ZZ Repair Abdominal Wall, Open Approach (ICD-10-PCS; principal; 2024-01-21 14:12)
PROC: 05HA33Z Insertion of Infusion Device into Left Brachial Vein, Percutaneous Approach (ICD-10-PCS; 2024-01-23)
DX: K43.0 Incisional hernia with obstruction, without gangrene (principal); I50.31 Acute diastolic (congestive) heart failure; J69.0 Pneumonitis due to inhalation of food and vomit; J95.821 Acute postprocedural respiratory failure; K56.50 Intestinal adhesions [bands], unspecified as to partial versus complete obstruction; J44.1 Chronic obstructive pulmonary disease with (acute) exacerbation; G89.18 Other acute postprocedural pain; I11.0 Hypertensive heart disease with heart failure; F32.A Depression, unspecified; F41.9 Anxiety disorder, unspecified; G25.81 Restless legs syndrome; F03.90 Unspecified dementia, unspecified severity, without behavioral disturbance, psychotic disturbance, mood disturbance, and anxiety; E03.9 Hypothyroidism, unspecified; G89.29 Other chronic pain; N81.4 Uterovaginal prolapse, unspecified; K21.9 Gastro-esophageal reflux disease without esophagitis; Z88.8 Allergy status to other drugs, medicaments and biological substances; Z90.49 Acquired absence of other specified parts of digestive tract; Z85.72 Personal history of non-Hodgkin lymphomas; Z79.899 Other long term (current) drug therapy
CPT/HCPCS: 36410; 36415; 36600; 71045; 74176; 76937; 80048; 80053; 81001; 82803; 82810; 82948; 83690; 83735; 83880; 84100; 84132; 84145; 84439; 84443; 85007; 85018; 85025; 87070; 87081; 92508; 92616; 93005; 93306; 94002; 94640; 94664; 94668; 94760; 96360; 96372; 97116; 97161; 97530; 99285; A4333; A4618; A5200; A6154; A6213; A6222; A6223; A6250; A6258; A6449; A7000; A9900; C1751; C9113; G0378; J0694; J1100; J1170; J1650; J1940; J1956; J2250; J2270; J2405; J2704; J2919; J3010; J3490; J7030; J7040; J7120

== ENCOUNTER 2024-03-13 09:25 | Outpatient (CLI) | payer MEDICARE ==
[2024-03-13] VITALS (17 sets, daily range): BP systolic 110–141; BP diastolic 52–71; PULSE 62–90; RESP 16–18; O2SAT 94–99
[~2024-03-13] VITALS: Ht 162.6 cm; Wt 102.0 kg
[~2024-03-13 09:25] MED LIST changes: +ALBU2.5V7 NEB; +ALPR0.255 PO; +BUDE0.5A3 NEB; +FLUO-331 PO; +FURO20TA4 PO; +HYDR-3965 PO; -LACT1CAP74 PO; +LEVO-65 PO; -LEVO100T PO; +NYST15PO4 TOP; +ONDA-243 PO; +POTA-207 PO; -PRAM0.253 PO; +PRAM0.5T12 PO; -PROZ10C PO
[2024-03-13] MEDS ORDERED: normal saline 500ml IV soln 500 ML IV ONE (10:50)
[2024-03-13] MEDS ORDERED: nitroGLYCERIN 0.4mg SUBLingual tab SL PRN (10:50)
[2024-03-13] MEDS: regadenoson 0.4mg/5ml syringe IV ONE (11:49)
[2024-03-13] MEDS: aminophylline 250mg/10ml inj. IV PRN (11:54)
== END 2024-03-13 23:59 | disposition home or self-care (01) ==
LOC: NM 09:25
PROVIDERS: ATTEND Internal Medicine Interventional Cardiology
DX: Z01.818 Encounter for other preprocedural examination (principal); I50.22 Chronic systolic (congestive) heart failure; R06.02 Shortness of breath
CPT/HCPCS: 78452; 93017; A9500; J0280; J2785; J7040

== ENCOUNTER 2024-07-08 23:17 | Inpatient (IN) | payer MEDICARE ==
[~2024-07-08] VITALS: Ht 165.1 cm; Wt 113.2 kg
[~2024-07-08 23:17] MED LIST changes: +NYST15PO13 TOP; -NYST15PO4 TOP
[2024-07-09] VITALS (10 sets, daily range): BP systolic 144–177; BP diastolic 70–90; PULSE 69–93; RESP 9–12; TEMP 96.9; O2SAT 96–100
[2024-07-09] MEDS ORDERED: iohexol 300mg/ml 100ml inj. ONE (00:24)
[2024-07-09 00:26] LABS: BASOPHILS # (AUTO) 0.1 X10'3 (0-0.2); BASOPHILS % (AUTO) 0.8 % (0-1); EOSINOPHILS # (AUTO) 0.3 X10'3 (0-0.9); EOSINOPHILS % (AUTO) 4.2 % (0-6); HEMATOCRIT 32.5 % (35.0-45.0); HEMOGLOBIN 10.8 g/dl (12.0-16.0); LYMPHOCYTES # (AUTO) 2.1 X10'3 (1.1-4.8); LYMPHOCYTES % (AUTO) 25.9 % (21-51); MEAN CORPUSCULAR HEMOGLOBIN 28.8 PG (27.0-31.0); MEAN CORPUSCULAR HGB CONC 33.3 g/dL (33.0-36.5); MEAN CORPUSCULAR VOLUME 86.6 FL (78-98); MEAN PLATELET VOLUME 6.5 FL (7.4-10.4); MONOCYTES # (AUTO) 0.5 X10'3 (0-0.9); MONOCYTES % (AUTO) 6.8 % (2-12); NEUTROPHILS # (AUTO) 4.9 X10'3 (1.8-7.7); NEUTROPHILS % (AUTO) 62.3 % (42-75); PLATELET COUNT 255 X10'3 (140-440); RED BLOOD COUNT 3.75 X10'6 (4.20-5.60); RED CELL DISTRIBUTION WIDTH 19.2 % (11.5-14.5); WHITE BLOOD COUNT 7.9 X10'3 (4.5-11.0)
[2024-07-09 00:44] LABS: ANISOCYTOSIS 1+; PLATELET ESTIMATE NORMAL
[2024-07-09 00:47] LABS: ALANINE AMINOTRANSFERASE 11 U/L (12-78); ALBUMIN 3.2 G/DL (3.4-5.0); ALBUMIN/GLOBULIN RATIO 0.5 (1.1-1.5); ALKALINE PHOSPHATASE 88 IU/L (46-116); ANION GAP 9 (8-16); ASPARTATE AMINO TRANSFERASE 13 U/L (10-37); BILIRUBIN,TOTAL 0.4 MG/DL (0.1-1.0); BLOOD UREA NITROGEN 24 MG/DL (7-18); BUN/CREATININE RATIO 24.5 (10.0-20.0); C-REACTIVE PROTEIN 0.88 MG/DL (0.0-0.5); CALCIUM 9.4 MG/DL (8.5-10.1); CHLORIDE 100 MMOL/L (99-107); CREATININE 0.98 MG/DL (0.40-0.90); GLUCOSE 120 MG/DL (70-104); LIPASE 19 U/L (16-77); MAGNESIUM 1.8 MG/DL (1.5-2.4); POTASSIUM 4.5 MMOL/L (3.5-5.1); SODIUM 137 MMOL/L (135-145); TOTAL CARBON DIOXIDE 28.3 MMOL/L (24-32); TOTAL PROTEIN 9.9 G/DL (6.4-8.2); eCRCL 40 ML/MIN; eGFR 54 ML/MIN
[2024-07-09] MEDS: HYDROcodone/acetaminophen 5mg/325mg tablet PO ONE (03:49)
[2024-07-09] MEDS: piperacillin/tazo 3.375gm/50ml 50 ML IV ONE (04:26)
[2024-07-09] MEDS ORDERED: NITR100C6 PO (05:27)
[2024-07-09] MEDS ORDERED: ASPI-1265 PO (05:29)
[2024-07-09] MEDS ORDERED: magnesium Cl slow-release 64mg tablet PO PRN (05:45)
[2024-07-09] MEDS ORDERED: morphine 2 MG/ML inj. syringe IV PRN (05:45)
[2024-07-09] MEDS ORDERED: ondansetron/PF 4mg/2ml inj IV PRN (05:45)
[2024-07-09] MEDS ORDERED: normal saline 1000ml 1,000 ML IV SCH (05:45)
[2024-07-09] MEDS ORDERED: potassium Cl 40MEQ/1/2NS 520ml 520 ML IV PRN (05:45)
[2024-07-09] MEDS ORDERED: magnesium sulf-water 4G/100mL 100 ML IV PRN (05:45)
[2024-07-09] MEDS ORDERED: potassium Cl 20 mEq SR tablet PO PRN ×2 (05:45)
[2024-07-09] MEDS ORDERED: magnesium sulf-water 2g/50mL 50 ML IV PRN (05:45)
[2024-07-09 06:01] LABS: BILIRUBIN,URINE NEGATIVE (Neg); CLARITY,URINE CLEAR (Clear); COLOR,URINE YELLOW (Yellow); GLUCOSE, URINE NEGATIVE (Neg); KETONES,URINE NEGATIVE (Neg); LEUKOCYTE ESTERASE ,URINE NEGATIVE (Neg); NITRITES, URINE NEGATIVE (Neg); OCCULT BLOOD,URINE TRACE-INTACT (Neg); PROTEIN,URINE NEGATIVE (Neg); UROBILINOGEN,URINE 0.2 E.U/dL (0.2-1.0)
[2024-07-09] MEDS: morphine 4 MG/ML inj SYRINge IV ONE (06:04)
[2024-07-09 06:05] LABS: UA COLLECTION TYPE CLN CATCH MIDSTREAM
[2024-07-09 06:06] LABS: WBC,URINE NONE SEEN /HPF (0-4)
[2024-07-09 06:07] LABS: BACTERIA,URINE NONE SEEN /HPF (Neg); MUCUS STRANDS NONE SEEN /LPF (Neg); SQUAMOUS EPITHELIAL CELL,UR FEW /LPF (FEW)
[2024-07-09] MEDS: FLUoxetine 10mg capsule PO SCH (07:36)
[2024-07-09] MEDS: pramipexole 0.25mg tablet PO SCH (07:36)
[2024-07-09] MEDS: aspirin 81mg tab.chew PO SCH (07:36)
[2024-07-09] MEDS: K and/or MAG REPLACEMENT MC SCH (08:00)
[2024-07-09] MEDS: ringers solution, lacted 1,000 ML IV SCH (12:04)
[2024-07-09] MEDS: ALPRAZolam 0.25mg tablet PO PRN (12:04)
[2024-07-09] MEDS: piperacillin/tazo 3.375gm/50ml 50 ML IV SCH (15:14)
[2024-07-09] MEDS ORDERED: BUPIVAcaine 2.5mg/ml inj 50ml vial (contains preservative) ONE (16:04)
[2024-07-09] MEDS ORDERED: midazolam 1 mg/ML 2ml injection ONE (16:40)
[2024-07-09] MEDS ORDERED: fentaNYL /PF 50mcg/ml 5ml ampule ONE (16:41)
[2024-07-09] MEDS ORDERED: sevoflurane 250ml liquid IH ONE (16:52)
[2024-07-09] MEDS: BUPIVAcaine 2.5mg/ml inj 50ml vial (contains preservative) SQ ONE (18:20)
[2024-07-09] MEDS ORDERED: LIDOcaine 2% (20mg/ml) 5ml vial ONE (18:21)
[2024-07-09] MEDS ORDERED: propofol inj 20 ML IV ONE (18:21)
[2024-07-09] MEDS ORDERED: ceFOXitin 1000 MG inj ONE ×2 (18:21)
[2024-07-09] MEDS ORDERED: rocuronium 10mg/ml inj IV ONE ×5 (18:21→19:55)
[2024-07-09] MEDS ORDERED: phenylephrine 10mg/ml inj. ONE (18:21)
[2024-07-09] MEDS ORDERED: fentaNYL/PF 50MCG/1 ML 2ML syringe IV PRN (20:15)
[2024-07-09] MEDS: FENTANYL-0.9 % NACL/PF 100 ML IV SCH (20:15)
[2024-07-09 21:36] LABS: ABG BASE EXCESS -0.5 mmol/L (-2.0-3.0); ABG HCO3 24.1 mmol/L (21.0-28.0); ABG OXYGEN SATURATION 99.8 % (94.0-98.0); ABG PCO2 (T) 36.3 mmHg (32.0-45.0); ABG PH (T) 7.433 (7.350-7.450); ABG PO2 (T) 296.1 mmHg (83.0-108.0); FCOHb 0.4 % (0.5-1.5); FHHb 0.2 % (0.0-5.0); FMetHb 0.3 % (0.0-1.5); FO2Hb 99.1 % (94.0-98.0); MODE VENT - SIMV; PATIENT TEMPERATURE 35.1; PEEP 5 cm H2O; RESPIRATORY RATE 12 b/min; TIDAL VOLUME 600 mL; TOTAL HEMOGLOBIN 11.5 G/dl (12.0-16.0)
[2024-07-09 22:27] LABS: BASOPHILS # (AUTO) 0.1 X10'3 (0-0.2); BASOPHILS % (AUTO) 0.6 % (0-1); EOSINOPHILS % (AUTO) 0.4 % (0-6); HEMATOCRIT 31.9 % (35.0-45.0); HEMOGLOBIN 10.4 g/dl (12.0-16.0); LYMPHOCYTES # (AUTO) 1.8 X10'3 (1.1-4.8); LYMPHOCYTES % (AUTO) 15.5 % (21-51); MEAN CORPUSCULAR HEMOGLOBIN 28.2 PG (27.0-31.0); MEAN CORPUSCULAR HGB CONC 32.5 g/dL (33.0-36.5); MEAN CORPUSCULAR VOLUME 86.8 FL (78-98); MEAN PLATELET VOLUME 6.6 FL (7.4-10.4); MONOCYTES # (AUTO) 0.7 X10'3 (0-0.9); MONOCYTES % (AUTO) 6.5 % (2-12); NEUTROPHILS # (AUTO) 8.7 X10'3 (1.8-7.7); PLATELET COUNT 250 X10'3 (140-440); RED BLOOD COUNT 3.68 X10'6 (4.20-5.60); RED CELL DISTRIBUTION WIDTH 18.6 % (11.5-14.5); WHITE BLOOD COUNT 11.3 X10'3 (4.5-11.0)
[2024-07-09 22:40] LABS: ALANINE AMINOTRANSFERASE 10 U/L (12-78); ALBUMIN 2.6 G/DL (3.4-5.0); ALBUMIN/GLOBULIN RATIO 0.5 (1.1-1.5); ALKALINE PHOSPHATASE 78 IU/L (46-116); ANION GAP 8 (8-16); ASPARTATE AMINO TRANSFERASE 16 U/L (10-37); BILIRUBIN,TOTAL 0.8 MG/DL (0.1-1.0); BLOOD UREA NITROGEN 17 MG/DL (7-18); BUN/CREATININE RATIO 19.5 (10.0-20.0); CALCIUM 9.1 MG/DL (8.5-10.1); CHLORIDE 101 MMOL/L (99-107); CREATININE 0.87 MG/DL (0.40-0.90); GLUCOSE 140 MG/DL (70-104); MAGNESIUM 1.6 MG/DL (1.5-2.4); PHOSPHORUS 3.4 MG/DL (2.3-4.5); SODIUM 134 MMOL/L (135-145); TOTAL CARBON DIOXIDE 25.5 MMOL/L (24-32); TOTAL PROTEIN 8.3 G/DL (6.4-8.2); eCRCL 45 ML/MIN; eGFR 62 ML/MIN
[2024-07-10] VITALS (35 sets, daily range): BP systolic 88–175; BP diastolic 37–93; PULSE 55–104; RESP 10–23; O2SAT 92–100
[2024-07-10] MEDS ORDERED: piperacillin/tazo 3.375gm/50ml 50 ML IV SCH (01:20)
[2024-07-10] MEDS: propofol 1000mg/100ml bottle 100 ML IV SCH (01:24)
[2024-07-10] MEDS: piperacillin/tazo 3.375gm/50ml 50 ML IV ONE (01:34)
[2024-07-10] MEDS: piperacillin/tazo 3.375gm/50ml 50 ML IV SCH (01:40)
[2024-07-10 03:01] LABS: ABG BASE EXCESS 3.4 mmol/L (-2.0-3.0); ABG HCO3 26.3 mmol/L (21.0-28.0); ABG OXYGEN SATURATION 98.8 % (94.0-98.0); ABG PCO2 (T) 31.9 mmHg (32.0-45.0); ABG PO2 (T) 111.4 mmHg (83.0-108.0); FCOHb 0.3 % (0.5-1.5); FHHb 1.2 % (0.0-5.0); FMetHb 0.3 % (0.0-1.5); FO2Hb 98.2 % (94.0-98.0); MODE VENT - SIMV; PATIENT TEMPERATURE 35.8; PEEP 5 cm H2O; RESPIRATORY RATE 12 b/min; TIDAL VOLUME 600 mL; TOTAL HEMOGLOBIN 10.5 G/dl (12.0-16.0)
[2024-07-10 03:35] LABS: BASOPHILS # (AUTO) 0.1 X10'3 (0-0.2); BASOPHILS % (AUTO) 0.6 % (0-1); EOSINOPHILS # (AUTO) 0.1 X10'3 (0-0.9); HEMATOCRIT 29.2 % (35.0-45.0); HEMOGLOBIN 9.8 g/dl (12.0-16.0); LYMPHOCYTES # (AUTO) 1.4 X10'3 (1.1-4.8); LYMPHOCYTES % (AUTO) 15.6 % (21-51); MEAN CORPUSCULAR HGB CONC 33.6 g/dL (33.0-36.5); MEAN CORPUSCULAR VOLUME 86.3 FL (78-98); MEAN PLATELET VOLUME 6.6 FL (7.4-10.4); MONOCYTES # (AUTO) 0.4 X10'3 (0-0.9); MONOCYTES % (AUTO) 4.3 % (2-12); NEUTROPHILS % (AUTO) 78.5 % (42-75); PLATELET COUNT 215 X10'3 (140-440); RED BLOOD COUNT 3.39 X10'6 (4.20-5.60); RED CELL DISTRIBUTION WIDTH 19.4 % (11.5-14.5)
[2024-07-10 03:48] LABS: APTT 27 SECONDS (22-32); PROTHROMBIN TIME 10.9 SECONDS (9.0-12.0)
[2024-07-10 03:51] LABS: ALANINE AMINOTRANSFERASE 8 U/L (12-78); ALBUMIN 2.3 G/DL (3.4-5.0); ALBUMIN/GLOBULIN RATIO 0.4 (1.1-1.5); ALKALINE PHOSPHATASE 67 IU/L (46-116); ANION GAP 7 (8-16); ASPARTATE AMINO TRANSFERASE 16 U/L (10-37); BLOOD UREA NITROGEN 17 MG/DL (7-18); CALCIUM 8.8 MG/DL (8.5-10.1); CHLORIDE 101 MMOL/L (99-107); CREATININE 0.85 MG/DL (0.40-0.90); GLUCOSE 125 MG/DL (70-104); MAGNESIUM 1.6 MG/DL (1.5-2.4); PHOSPHORUS 2.9 MG/DL (2.3-4.5); POTASSIUM 3.8 MMOL/L (3.5-5.1); SODIUM 133 MMOL/L (135-145); TOTAL PROTEIN 7.5 G/DL (6.4-8.2); TRIGLYCERIDES 45 MG/DL (20-135); eCRCL 46 ML/MIN; eGFR 64 ML/MIN
[2024-07-10] MEDS: albuterol 2.5 MG/3 ML nebule NEB PRN (07:31)
[2024-07-10] MEDS: HYDROcodone/acetaminophen 5mg/325mg tablet PO PRN (08:22)
[2024-07-10] MEDS: HYDROmorphone inj. 0.5 MG/0.5 ML DISP.SYRIN IV PRN (09:39)
[2024-07-10 10:44] LABS: ABG BASE EXCESS -0.4 mmol/L (-2.0-3.0); ABG HCO3 25.6 mmol/L (21.0-28.0); ABG OXYGEN SATURATION 95.7 % (94.0-98.0); ABG PCO2 (T) 48.4 mmHg (32.0-45.0); ABG PH (T) 7.342 (7.350-7.450); ABG PO2 (T) 88.4 mmHg (83.0-108.0); FCOHb 0.3 % (0.5-1.5); FHHb 4.3 % (0.0-5.0); FLOW 5 L/min; FMetHb 0.3 % (0.0-1.5); FO2Hb 95.1 % (94.0-98.0); MODE NASAL CANNULA; PATIENT TEMPERATURE 37.4; TOTAL HEMOGLOBIN 10.9 G/dl (12.0-16.0)
[2024-07-10] MEDS: albumin (Human) 5% 250ml 250 ML IV ONE (14:59)
[2024-07-10] MEDS ORDERED: LEVO100T PO (17:08)
[2024-07-10] MEDS ORDERED: FURO-150 PO (17:08)
[2024-07-10] MEDS ORDERED: TRAZ-251 PO (17:08)
[2024-07-10] MEDS ORDERED: ASPI-611 PO (17:08)
[2024-07-10] MEDS ORDERED: BETA1TAB20 PO (17:08)
[2024-07-10] MEDS ORDERED: DOCU-337 PO (17:08)
[2024-07-10] MEDS ORDERED: LACT1CAP65 PO (17:08)
[2024-07-10] MEDS: morphine 2 MG/ML inj. syringe IV PRN (17:20)
[2024-07-10] MEDS: nystatin 15 GM powder TP SCH (20:42)
[2024-07-11] VITALS (28 sets, daily range): BP systolic 89–136; BP diastolic 37–74; PULSE 74–97; RESP 11–22; O2SAT 95–100
[2024-07-11] MEDS: mineral oil/petrolatum ophthal oint EACHEYE SCH (02:00)
[2024-07-11 04:18] LABS: BASOPHILS % (AUTO) 0.5 % (0-1); EOSINOPHILS # (AUTO) 0.4 X10'3 (0-0.9); EOSINOPHILS % (AUTO) 4.4 % (0-6); HEMATOCRIT 29.2 % (35.0-45.0); HEMOGLOBIN 9.7 g/dl (12.0-16.0); LYMPHOCYTES # (AUTO) 1.2 X10'3 (1.1-4.8); LYMPHOCYTES % (AUTO) 12.5 % (21-51); MEAN CORPUSCULAR HEMOGLOBIN 29.1 PG (27.0-31.0); MEAN CORPUSCULAR HGB CONC 33.1 g/dL (33.0-36.5); MEAN CORPUSCULAR VOLUME 87.9 FL (78-98); MEAN PLATELET VOLUME 6.7 FL (7.4-10.4); MONOCYTES # (AUTO) 0.7 X10'3 (0-0.9); MONOCYTES % (AUTO) 7.1 % (2-12); NEUTROPHILS # (AUTO) 7.3 X10'3 (1.8-7.7); NEUTROPHILS % (AUTO) 75.5 % (42-75); PLATELET COUNT 200 X10'3 (140-440); RED BLOOD COUNT 3.32 X10'6 (4.20-5.60); RED CELL DISTRIBUTION WIDTH 19.6 % (11.5-14.5); WHITE BLOOD COUNT 9.7 X10'3 (4.5-11.0)
[2024-07-11 04:49] LABS: ALANINE AMINOTRANSFERASE 8 U/L (12-78); ALBUMIN 2.4 G/DL (3.4-5.0); ALBUMIN/GLOBULIN RATIO 0.5 (1.1-1.5); ALKALINE PHOSPHATASE 57 IU/L (46-116); ANION GAP 7 (8-16); ASPARTATE AMINO TRANSFERASE 29 U/L (10-37); BILIRUBIN,TOTAL 1.1 MG/DL (0.1-1.0); BLOOD UREA NITROGEN 15 MG/DL (7-18); BUN/CREATININE RATIO 17.9 (10.0-20.0); CALCIUM 8.7 MG/DL (8.5-10.1); CHLORIDE 102 MMOL/L (99-107); CREATININE 0.84 MG/DL (0.40-0.90); GLUCOSE 100 MG/DL (70-104); MAGNESIUM 1.8 MG/DL (1.5-2.4); PHOSPHORUS 3.4 MG/DL (2.3-4.5); POTASSIUM 4.2 MMOL/L (3.5-5.1); SODIUM 135 MMOL/L (135-145); TOTAL CARBON DIOXIDE 25.9 MMOL/L (24-32); TOTAL PROTEIN 7.4 G/DL (6.4-8.2); eCRCL 46 ML/MIN; eGFR 65 ML/MIN
[2024-07-11 06:18] LABS: APTT 29 SECONDS (22-32); INR 1.1 INR; PROTHROMBIN TIME 11.5 SECONDS (9.0-12.0)
[2024-07-11 11:27] LABS: HBSAG SCREEN Negative (Negative); HEP B CORE AB, IGM Negative (Negative); HEP B CORE AB, TOT Negative (Negative); HEP B SURF AB Non Reactive (.)
[2024-07-11] MEDS: pantoprazole 40MG/NS 100ML BAG 100 ML IV SCH (13:39)
[2024-07-11] MEDS: diatr meglu/diatrizoate 30ml oral sol.-(3 dose) bottle PO SCH (20:25)
[2024-07-12] VITALS (26 sets, daily range): BP systolic 89–122; BP diastolic 37–75; PULSE 59–86; RESP 9–20; O2SAT 90–97
[2024-07-12 06:19] LABS: BASOPHILS % (AUTO) 0.5 % (0-1); EOSINOPHILS # (AUTO) 0.6 X10'3 (0-0.9); EOSINOPHILS % (AUTO) 7.1 % (0-6); HEMATOCRIT 27.2 % (35.0-45.0); LYMPHOCYTES # (AUTO) 1.5 X10'3 (1.1-4.8); LYMPHOCYTES % (AUTO) 17.7 % (21-51); MEAN CORPUSCULAR HEMOGLOBIN 29.2 PG (27.0-31.0); MEAN CORPUSCULAR HGB CONC 33.1 g/dL (33.0-36.5); MEAN CORPUSCULAR VOLUME 88.1 FL (78-98); MEAN PLATELET VOLUME 6.9 FL (7.4-10.4); MONOCYTES # (AUTO) 0.7 X10'3 (0-0.9); MONOCYTES % (AUTO) 8.3 % (2-12); NEUTROPHILS # (AUTO) 5.5 X10'3 (1.8-7.7); NEUTROPHILS % (AUTO) 66.4 % (42-75); PLATELET COUNT 181 X10'3 (140-440); RED BLOOD COUNT 3.09 X10'6 (4.20-5.60); RED CELL DISTRIBUTION WIDTH 18.9 % (11.5-14.5); WHITE BLOOD COUNT 8.3 X10'3 (4.5-11.0)
[2024-07-12 06:29] LABS: APTT 30 SECONDS (22-32); INR 1.1 INR; PROTHROMBIN TIME 11.9 SECONDS (9.0-12.0)
[2024-07-12 06:34] LABS: ALANINE AMINOTRANSFERASE 7 U/L (12-78); ALBUMIN 2.1 G/DL (3.4-5.0); ALBUMIN/GLOBULIN RATIO 0.4 (1.1-1.5); ALKALINE PHOSPHATASE 65 IU/L (46-116); ANION GAP 5 (8-16); ASPARTATE AMINO TRANSFERASE 12 U/L (10-37); BLOOD UREA NITROGEN 14 MG/DL (7-18); BUN/CREATININE RATIO 16.3 (10.0-20.0); CALCIUM 8.7 MG/DL (8.5-10.1); CHLORIDE 103 MMOL/L (99-107); CREATININE 0.86 MG/DL (0.40-0.90); GLUCOSE 86 MG/DL (70-104); MAGNESIUM 1.7 MG/DL (1.5-2.4); PHOSPHORUS 2.8 MG/DL (2.3-4.5); SODIUM 136 MMOL/L (135-145); TOTAL CARBON DIOXIDE 28.4 MMOL/L (24-32); eCRCL 45 ML/MIN; eGFR 63 ML/MIN
[2024-07-12 07:14] LABS: ANISOCYTOSIS 2+; PLATELET ESTIMATE NORMAL
[2024-07-12 07:15] LABS: HYPOCHROMASIA 1+
[2024-07-12] MEDS: enoxaparin 40mg/0.4ml syringe SUBCUT SCH (19:29)
[2024-07-12] MEDS: methylnaltrexone br 12mg/0.6ml inj***SubQ only SQ SCH (19:29)
[2024-07-12] MEDS ORDERED: metoclopramide 5 mg/ml inj IV SCH (20:00)
[2024-07-13] VITALS (28 sets, daily range): BP systolic 85–120; BP diastolic 39–61; PULSE 51–79; RESP 10–22; O2SAT 90–98
[2024-07-13] MEDS: acetaminophen 325mg tablet PO PRN (04:16)
[2024-07-13] MEDS: ALPRAZolam 0.25mg tablet PO PRN (04:16)
[2024-07-13 06:19] LABS: BASOPHILS # (AUTO) 0.1 X10'3 (0-0.2); EOSINOPHILS # (AUTO) 0.4 X10'3 (0-0.9); HEMATOCRIT 26.4 % (35.0-45.0); HEMOGLOBIN 8.7 g/dl (12.0-16.0); LYMPHOCYTES # (AUTO) 1.3 X10'3 (1.1-4.8); LYMPHOCYTES % (AUTO) 21.1 % (21-51); MEAN CORPUSCULAR HEMOGLOBIN 29.1 PG (27.0-31.0); MEAN CORPUSCULAR VOLUME 88.2 FL (78-98); MEAN PLATELET VOLUME 6.9 FL (7.4-10.4); MONOCYTES # (AUTO) 0.4 X10'3 (0-0.9); MONOCYTES % (AUTO) 5.9 % (2-12); NEUTROPHILS # (AUTO) 4.1 X10'3 (1.8-7.7); PLATELET COUNT 187 X10'3 (140-440); WHITE BLOOD COUNT 6.3 X10'3 (4.5-11.0)
[2024-07-13 06:22] LABS: INR 1.1 INR; PROTHROMBIN TIME 11.4 SECONDS (9.0-12.0)
[2024-07-13 06:31] LABS: ALANINE AMINOTRANSFERASE 7 U/L (12-78); ALBUMIN/GLOBULIN RATIO 0.4 (1.1-1.5); ALKALINE PHOSPHATASE 85 IU/L (46-116); ANION GAP 7 (8-16); ASPARTATE AMINO TRANSFERASE 12 U/L (10-37); BILIRUBIN,TOTAL 0.9 MG/DL (0.1-1.0); BLOOD UREA NITROGEN 12 MG/DL (7-18); BUN/CREATININE RATIO 14.6 (10.0-20.0); CALCIUM 8.8 MG/DL (8.5-10.1); CHLORIDE 102 MMOL/L (99-107); CREATININE 0.82 MG/DL (0.40-0.90); GLUCOSE 79 MG/DL (70-104); MAGNESIUM 1.7 MG/DL (1.5-2.4); PHOSPHORUS 3.1 MG/DL (2.3-4.5); SODIUM 138 MMOL/L (135-145); TOTAL PROTEIN 7.1 G/DL (6.4-8.2); eCRCL 48 ML/MIN; eGFR 67 ML/MIN
[2024-07-13] MEDS: dextrose 5%-lactated ringers 1,000 ML IV SCH (20:03)
[2024-07-14] VITALS (17 sets, daily range): BP systolic 88–144; BP diastolic 45–93; PULSE 55–78; RESP 10–20; TEMP 96.9–97.9; O2SAT 91–97
[2024-07-14 06:07] LABS: BASOPHILS # (AUTO) 0.1 X10'3 (0-0.2); BASOPHILS % (AUTO) 1.2 % (0-1); EOSINOPHILS # (AUTO) 0.5 X10'3 (0-0.9); EOSINOPHILS % (AUTO) 9.4 % (0-6); HEMATOCRIT 27.2 % (35.0-45.0); LYMPHOCYTES # (AUTO) 1.3 X10'3 (1.1-4.8); LYMPHOCYTES % (AUTO) 24.5 % (21-51); MEAN CORPUSCULAR HEMOGLOBIN 29.2 PG (27.0-31.0); MEAN CORPUSCULAR HGB CONC 33.2 g/dL (33.0-36.5); MEAN PLATELET VOLUME 6.6 FL (7.4-10.4); MONOCYTES # (AUTO) 0.4 X10'3 (0-0.9); MONOCYTES % (AUTO) 7.5 % (2-12); NEUTROPHILS # (AUTO) 3.1 X10'3 (1.8-7.7); NEUTROPHILS % (AUTO) 57.4 % (42-75); PLATELET COUNT 217 X10'3 (140-440); RED BLOOD COUNT 3.09 X10'6 (4.20-5.60); RED CELL DISTRIBUTION WIDTH 19.3 % (11.5-14.5); WHITE BLOOD COUNT 5.4 X10'3 (4.5-11.0)
[2024-07-14 06:10] LABS: INR 1.1 INR; PROTHROMBIN TIME 11.3 SECONDS (9.0-12.0)
[2024-07-14 06:20] LABS: ALBUMIN 2.1 G/DL (3.4-5.0); ALBUMIN/GLOBULIN RATIO 0.4 (1.1-1.5); ALKALINE PHOSPHATASE 94 IU/L (46-116); ANION GAP 3 (8-16); ASPARTATE AMINO TRANSFERASE 12 U/L (10-37); BILIRUBIN,TOTAL 0.9 MG/DL (0.1-1.0); BLOOD UREA NITROGEN 11 MG/DL (7-18); BUN/CREATININE RATIO 12.4 (10.0-20.0); CALCIUM 8.6 MG/DL (8.5-10.1); CHLORIDE 101 MMOL/L (99-107); CREATININE 0.89 MG/DL (0.40-0.90); GLUCOSE 109 MG/DL (70-104); MAGNESIUM 1.5 MG/DL (1.5-2.4); PHOSPHORUS 2.9 MG/DL (2.3-4.5); POTASSIUM 3.9 MMOL/L (3.5-5.1); SODIUM 136 MMOL/L (135-145); TOTAL CARBON DIOXIDE 31.8 MMOL/L (24-32); TOTAL PROTEIN 7.4 G/DL (6.4-8.2); eCRCL 44 ML/MIN; eGFR 61 ML/MIN
[2024-07-14 06:45] LABS: ALANINE AMINOTRANSFERASE 8 U/L (12-78)
[2024-07-14] MEDS: magnesium hydroxide 30ml (MOM) UD suspension PO SCH (07:07)
[2024-07-15] VITALS (12 sets, daily range): BP systolic 103–127; BP diastolic 40–70; PULSE 56–73; RESP 12–20; TEMP 97.3–99.6; O2SAT 88–100
[2024-07-15 09:25] LABS: BASOPHILS % (AUTO) 0.7 % (0-1); EOSINOPHILS # (AUTO) 0.4 X10'3 (0-0.9); EOSINOPHILS % (AUTO) 7.6 % (0-6); HEMATOCRIT 29.9 % (35.0-45.0); HEMOGLOBIN 9.7 g/dl (12.0-16.0); LYMPHOCYTES # (AUTO) 1.6 X10'3 (1.1-4.8); LYMPHOCYTES % (AUTO) 28.3 % (21-51); MEAN CORPUSCULAR HEMOGLOBIN 28.3 PG (27.0-31.0); MEAN CORPUSCULAR HGB CONC 32.3 g/dL (33.0-36.5); MEAN CORPUSCULAR VOLUME 87.7 FL (78-98); MEAN PLATELET VOLUME 6.5 FL (7.4-10.4); MONOCYTES # (AUTO) 0.4 X10'3 (0-0.9); MONOCYTES % (AUTO) 7.2 % (2-12); NEUTROPHILS # (AUTO) 3.3 X10'3 (1.8-7.7); NEUTROPHILS % (AUTO) 56.2 % (42-75); PLATELET COUNT 255 X10'3 (140-440); RED BLOOD COUNT 3.41 X10'6 (4.20-5.60); RED CELL DISTRIBUTION WIDTH 19.4 % (11.5-14.5); WHITE BLOOD COUNT 5.8 X10'3 (4.5-11.0)
[2024-07-15 10:45] LABS: ALANINE AMINOTRANSFERASE 6 U/L (12-78); ALBUMIN 2.1 G/DL (3.4-5.0); ALBUMIN/GLOBULIN RATIO 0.4 (1.1-1.5); ALKALINE PHOSPHATASE 98 IU/L (46-116); ANION GAP 7 (8-16); ASPARTATE AMINO TRANSFERASE 13 U/L (10-37); BILIRUBIN,TOTAL 0.7 MG/DL (0.1-1.0); BLOOD UREA NITROGEN 7 MG/DL (7-18); BUN/CREATININE RATIO 8.2 (10.0-20.0); CALCIUM 8.8 MG/DL (8.5-10.1); CHLORIDE 100 MMOL/L (99-107); CREATININE 0.85 MG/DL (0.40-0.90); GLUCOSE 131 MG/DL (70-104); POTASSIUM 3.8 MMOL/L (3.5-5.1); SODIUM 137 MMOL/L (135-145); TOTAL CARBON DIOXIDE 30.5 MMOL/L (24-32); TOTAL PROTEIN 7.8 G/DL (6.4-8.2); eCRCL 46 ML/MIN; eGFR 64 ML/MIN
[2024-07-15 17:18] LABS: FERRITIN 118 NG/ML (8-252)
[2024-07-15 17:29] LABS: % IRON SATURATION 11 % (11-46); IRON 21 UG/DL (49-151); TOTAL IRON BINDING CAPACITY 188 UG/DL (259-388)
[2024-07-16] VITALS (12 sets, daily range): BP systolic 102–137; BP diastolic 42–61; PULSE 53–72; RESP 13–20; TEMP 96.3–98.1; O2SAT 95–100
[2024-07-16 07:37] LABS: BASOPHILS % (AUTO) 0.8 % (0-1); EOSINOPHILS # (AUTO) 0.5 X10'3 (0-0.9); EOSINOPHILS % (AUTO) 9.5 % (0-6); HEMATOCRIT 27.2 % (35.0-45.0); LYMPHOCYTES # (AUTO) 1.5 X10'3 (1.1-4.8); LYMPHOCYTES % (AUTO) 29.2 % (21-51); MEAN CORPUSCULAR HEMOGLOBIN 29.2 PG (27.0-31.0); MEAN CORPUSCULAR HGB CONC 33.2 g/dL (33.0-36.5); MEAN CORPUSCULAR VOLUME 88.1 FL (78-98); MEAN PLATELET VOLUME 6.5 FL (7.4-10.4); MONOCYTES # (AUTO) 0.5 X10'3 (0-0.9); MONOCYTES % (AUTO) 8.7 % (2-12); NEUTROPHILS # (AUTO) 2.7 X10'3 (1.8-7.7); NEUTROPHILS % (AUTO) 51.8 % (42-75); PLATELET COUNT 238 X10'3 (140-440); RED BLOOD COUNT 3.09 X10'6 (4.20-5.60); WHITE BLOOD COUNT 5.2 X10'3 (4.5-11.0)
[2024-07-16 08:01] LABS: ALANINE AMINOTRANSFERASE 7 U/L (12-78); ALBUMIN 2.1 G/DL (3.4-5.0); ALBUMIN/GLOBULIN RATIO 0.4 (1.1-1.5); ALKALINE PHOSPHATASE 81 IU/L (46-116); ANION GAP 4 (8-16); ASPARTATE AMINO TRANSFERASE 14 U/L (10-37); BILIRUBIN,TOTAL 0.5 MG/DL (0.1-1.0); BLOOD UREA NITROGEN 5 MG/DL (7-18); BUN/CREATININE RATIO 6.4 (10.0-20.0); CALCIUM 8.8 MG/DL (8.5-10.1); CHLORIDE 101 MMOL/L (99-107); CREATININE 0.78 MG/DL (0.40-0.90); GLUCOSE 115 MG/DL (70-104); POTASSIUM 3.9 MMOL/L (3.5-5.1); SODIUM 138 MMOL/L (135-145); TOTAL CARBON DIOXIDE 33.2 MMOL/L (24-32); TOTAL PROTEIN 7.5 G/DL (6.4-8.2); eCRCL 50 ML/MIN; eGFR 71 ML/MIN
[2024-07-17 02:00] VITALS: BP 134/67; PULSE 61; RESP 15; TEMP 97.8; O2SAT 95
[2024-07-17 06:00] VITALS: BP 114/78; PULSE 59; RESP 18; TEMP 96.7; O2SAT 95
[2024-07-17 07:58] LABS: BASOPHILS % (AUTO) 0.9 % (0-1); EOSINOPHILS # (AUTO) 0.6 X10'3 (0-0.9); EOSINOPHILS % (AUTO) 11.8 % (0-6); HEMATOCRIT 28.4 % (35.0-45.0); HEMOGLOBIN 9.4 g/dl (12.0-16.0); LYMPHOCYTES # (AUTO) 1.6 X10'3 (1.1-4.8); LYMPHOCYTES % (AUTO) 31.5 % (21-51); MEAN CORPUSCULAR HGB CONC 33.1 g/dL (33.0-36.5); MEAN CORPUSCULAR VOLUME 87.7 FL (78-98); MEAN PLATELET VOLUME 6.5 FL (7.4-10.4); MONOCYTES # (AUTO) 0.4 X10'3 (0-0.9); MONOCYTES % (AUTO) 7.8 % (2-12); NEUTROPHILS # (AUTO) 2.5 X10'3 (1.8-7.7); PLATELET COUNT 250 X10'3 (140-440); RED BLOOD COUNT 3.24 X10'6 (4.20-5.60); RED CELL DISTRIBUTION WIDTH 19.5 % (11.5-14.5); WHITE BLOOD COUNT 5.2 X10'3 (4.5-11.0)
[2024-07-17 08:00] VITALS: RESP 18; O2SAT 100
[2024-07-17 08:22] LABS: ALANINE AMINOTRANSFERASE 7 U/L (12-78); ALBUMIN 2.2 G/DL (3.4-5.0); ALBUMIN/GLOBULIN RATIO 0.4 (1.1-1.5); ALKALINE PHOSPHATASE 75 IU/L (46-116); ANION GAP 4 (8-16); ASPARTATE AMINO TRANSFERASE 14 U/L (10-37); BILIRUBIN,TOTAL 0.5 MG/DL (0.1-1.0); BLOOD UREA NITROGEN 6 MG/DL (7-18); BUN/CREATININE RATIO 7.5 (10.0-20.0); CALCIUM 8.7 MG/DL (8.5-10.1); CHLORIDE 103 MMOL/L (99-107); GLUCOSE 103 MG/DL (70-104); POTASSIUM 4.1 MMOL/L (3.5-5.1); SODIUM 139 MMOL/L (135-145); TOTAL CARBON DIOXIDE 31.8 MMOL/L (24-32); TOTAL PROTEIN 7.8 G/DL (6.4-8.2); TRIGLYCERIDES 109 MG/DL (20-135); eCRCL 49 ML/MIN; eGFR 69 ML/MIN
[2024-07-17 11:00] VITALS: BP 135/66; PULSE 60; RESP 19; TEMP 97.7; O2SAT 95
[2024-07-17] MEDS: LidoCAINE 2% Topical Jelly 11mL syringe (UROJET) TOP ONE (12:41)
== END 2024-07-17 15:00 | DRG 353 ==
LOC: ER 23:18 → ED HOLD 07-09 06:08 → EDBEDREQ 07-09 10:36 → PCU 3S 07-09 10:43 → SUR 3N 07-09 16:00 → CICU 2S 07-09 21:15 → PCU 3S 07-14 16:50
PROVIDERS: ADMIT Surgery Surgical Critical Care; ATTEND Family Medicine
PROC: 0WJF4ZZ Inspection of Abdominal Wall, Percutaneous Endoscopic Approach (ICD-10-PCS; 2024-07-09)
PROC: 8E0W4CZ Robotic Assisted Procedure of Trunk Region, Percutaneous Endoscopic Approach (ICD-10-PCS; 2024-07-09)
PROC: 0BH17EZ Insertion of Endotracheal Airway into Trachea, Via Natural or Artificial Opening (ICD-10-PCS; 2024-07-09)
PROC: 5A1935Z Respiratory Ventilation, Less than 24 Consecutive Hours (ICD-10-PCS; 2024-07-09)
PROC: 0WUF4JZ Supplement Abdominal Wall with Synthetic Substitute, Percutaneous Endoscopic Approach (ICD-10-PCS; principal; 2024-07-09 16:52)
DX: K43.6 Other and unspecified ventral hernia with obstruction, without gangrene (principal); J96.00 Acute respiratory failure, unspecified whether with hypoxia or hypercapnia; E87.1 Hypo-osmolality and hyponatremia; I11.0 Hypertensive heart disease with heart failure; J44.9 Chronic obstructive pulmonary disease, unspecified; I50.9 Heart failure, unspecified; G25.81 Restless legs syndrome; D64.9 Anemia, unspecified; K43.0 Incisional hernia with obstruction, without gangrene; E03.9 Hypothyroidism, unspecified; K21.9 Gastro-esophageal reflux disease without esophagitis; F03.90 Unspecified dementia, unspecified severity, without behavioral disturbance, psychotic disturbance, mood disturbance, and anxiety; E66.812 Obesity, class 2; G89.29 Other chronic pain; F32.A Depression, unspecified; Z88.8 Allergy status to other drugs, medicaments and biological substances; Z90.49 Acquired absence of other specified parts of digestive tract; Z85.71 Personal history of Hodgkin lymphoma; Z82.49 Family history of ischemic heart disease and other diseases of the circulatory system; Z68.38 Body mass index [BMI] 38.0-38.9, adult
CPT/HCPCS: 36415; 36600; 71045; 74176; 74177; 80053; 81001; 82728; 82803; 82948; 83540; 83550; 83605; 83690; 83735; 84100; 84478; 84484; 85008; 85018; 85025; 85610; 85651; 85730; 86140; 86704; 86705; 86706; 86885; 86900; 86901; 87070; 87081; 87340; 92508; 92616; 93005; 93306; 94002; 94003; 94640; 94668; 94760; 96365; 97110; 97116; 97161; 97530; 97535; 99285; A4215; A4615; A4618; A5200; A6213; A6222; A6250; A6258; A6449; A7015; C1758; C1781; G0378; J0694; J1171; J1650; J2003; J2212; J2250; J2270; J2370; J2470; J2543; J2704; J3010; J3490; J7040; J7042; J7120; J7121; P9045; Q9963; Q9967